=== PATIENT | female | born 1955 | race Caucasian/White ===

== ENCOUNTER 2022-02-05 08:37 | Outpatient (REF) | payer MEDICARE, SELFPAY ==
[2022-02-05 08:50] LABS: MANUAL DIFF FLAG NO
[2022-02-05 09:23] LABS: Basophils Absolute Auto 0.1 X10*3/uL (0.0-0.2); Basophils Percent Auto 1.2 % (0-2); Eosinophils Absolute Auto 0.2 X10*3/uL (0.0-0.4); Eosinophils Percent Auto 3.5 % (0-4); Hematocrit 43.6 % (37.0-47.0); Hemoglobin 14.1 g/dl (12.0-16.0); Imm Gran Abs Auto 0.02 X10*3/uL (0.00-0.03); Imm Gran Pct Auto 0.4 % (0.0-0.4); Lymphocytes Absolute Auto 2.1 X10*3/uL (1.2-4.9); Lymphocytes Percent Auto 41.9 % (20-40); Mean Corpuscular HGB Conc 32.3 g/dl (31.0-35.0); Mean Corpuscular Hemoglobin 29.1 pg (27.0-33.0); Mean Corpuscular Volume 89.9 fL (80.0-98.0); Mean Platelet Volume 11.4 fL (9.4-12.3); Monocytes Absolute Auto 0.4 X10*3/uL (0.1-1.2); Monocytes Percent Auto 8.3 % (2-11); Neutrophils Absolute Auto 2.3 x10*3/uL (2.0-8.3); Neutrophils Percent Auto 44.7 % (45-73); Platelet Count 222 X10*3/uL (160-400); Red Blood Count 4.85 X10*6/uL (4.20-5.50); Red Cell Distribution Width 13.3 % (11.0-16.0); White Blood Count 5.1 X10*3/uL (4.8-10.8)
[2022-02-05 09:57] LABS: Alanine Aminotransferase 51 U/L (0-31); Alkaline Phosphatase 128 U/L (39-117); Anion Gap 12 (12-20); Aspartate Amino Transferase 36 U/L (5-31); Bilirubin Total 0.5 mg/dL (0.0-1.0); Blood Urea Nitrogen 22 mg/dL (9-16); Calcium 9.7 mg/dL (8.4-10.2); Carbon Dioxide 27 mmol/L (22-29); Chloride 108 mmol/L (96-108); Cholesterol 317 mg/dL; Estimated Glomerular Filt Rate > 60; Glucose Fasting 92 mg/dL (60-99); HDL Cholesterol 86 mg/dL; LDL Cholesterol Calculated 212 mg/dl; Potassium 4.7 mmol/L (3.3-5.1); Sodium 142 mmol/L (135-145); Total Protein 6.9 g/dL (6.5-8.0); Triglycerides 99 mg/dL
[2022-02-05 10:16] LABS: TSH reflex Free T4 25.47 uIU/mL (0.32-4.0)
[2022-02-05 11:15] LABS: Free T4 (Free Thyroxine) 0.73 ng/dL (0.71-1.85)
[2022-02-12 12:32] LABS: Vitamin D 25-OH, D2 <4 ng/mL; Vitamin D 25-OH, D3 22 ng/mL; Vitamin D 25-OH, Total 22 ng/mL (30-100)
== END 2022-02-05 08:38 | disposition home or self-care (01) ==
LOC: HO.LAB 08:37
PROVIDERS: PCP Internal Medicine; Visit Provider Nurse Practitioner Family
DX: E03.9 Hypothyroidism, unspecified (principal); E66.9 Obesity, unspecified; E78.00 Pure hypercholesterolemia, unspecified; I10 Essential (primary) hypertension
CPT/HCPCS: 36415; 80053; 80061; 82306; 84439; 84443; 85025

== ENCOUNTER → 2022-03-06 10:02 | Outpatient (BNVA) | payer MEDICARE, SELFPAY | PROVIDERS: PCP Internal Medicine; Referring Provider Surgery; Visit Provider Physician Assistant | DX: Z13.89 Encounter for screening for other disorder (principal) ==

== ENCOUNTER → 2022-03-17 10:53 | Outpatient (BNVA) | payer MEDICARE, SELFPAY | PROVIDERS: PCP Internal Medicine; Visit Provider Physician Assistant Surgical | DX: E66.9 Obesity, unspecified (principal); Z68.41 Body mass index [BMI] 40.0-44.9, adult | CPT/HCPCS: Q3014 ==

== ENCOUNTER 2022-03-26 08:18 | Outpatient (REF) | payer MEDICARE, SELFPAY ==
--- NOTE | ~2022-03-26 | XR_ITS ---
EXAMINATION: XR CHEST CLINICAL INFORMATION: Obesity COMPARISON: None TECHNIQUE: 2 views of the chest were obtained. FINDINGS: No focal consolidation. No pneumothorax. Trachea is midline. Cardiomediastinal silhouette is not enlarged. Aorta demonstrates tortuosity with atherosclerotic calcifications. No large pleural effusion. Degenerative changes of the thoracolumbar spine. Soft tissues are unremarkable. XR/XR chest 2V IMPRESSION: No acute cardiopulmonary process.
--- NOTE | 2022-03-26 08:28 | ECG_ITS ---
Test Reason : OBESITY Blood Pressure : / mmHG Vent. Rate : 060 BPM Atrial Rate : 060 BPM P-R Int : 162 ms QRS Dur : 082 ms QT Int : 418 ms P-R-T Axes : 014 008 052 degrees QTc Int : 418 ms Normal sinus rhythm Normal ECG No previous ECGs available Referred By: Rubio Izquierdo Electronically Signed By:DEWAYNE GUY MD
[2022-03-26 09:51] LABS: Estimated Average Glucose 105 mg/dL; Hemoglobin A1c % 5.3 %
[2022-03-26 10:32] LABS: Alanine Aminotransferase 36 U/L (0-31); Albumin Level 4.1 g/dL (3.5-5.0); Alkaline Phosphatase 115 U/L (39-117); Aspartate Amino Transferase 26 U/L (5-31); Bilirubin Direct 0.2 mg/dL (0.0-0.5); Bilirubin Total 0.5 mg/dL (0.0-1.0); Iron 89 mcg/dL (30-160); Percent Iron Saturation 27 % (15-50); Total Iron Binding Capacity 329 mcg/dL (228-428); Total Protein 6.9 g/dL (6.5-8.0); Unsaturated Iron Binding 240 ug/dL
[2022-03-26 10:46] LABS: Folate 17.3 ng/mL (> or = 4.0); Vitamin B12 509 pg/mL (200-900)
[2022-03-26 10:52] LABS: Ferritin 312 ng/mL (10-250); Insulin 12 uU/mL (2-29); Thyroid Stimulating Hormone 9.44 uIU/mL (0.32-4.0)
[2022-03-29 15:43] LABS: H Pylori Breath Test Negative (Negative)
[2022-03-31 06:31] LABS: Zinc 93 mcg/dL (60-130)
[2022-04-01 16:55] LABS: Vitamin B1 14 nmol/L (8-30)
[2022-04-01 18:02] LABS: Vitamin A 33 mcg/dL (38-98)
== END 2022-03-26 08:19 | disposition home or self-care (01) ==
LOC: HO.XRAY 08:18
PROVIDERS: Absent Provider Physician Assistant Surgical; PCP Internal Medicine; Visit Provider Internal Medicine
DX: Z01.419 Encounter for gynecological examination (general) (routine) without abnormal findings (principal); E66.9 Obesity, unspecified; E03.9 Hypothyroidism, unspecified; R74.01 Elevation of levels of liver transaminase levels
CPT/HCPCS: 36415; 71046; 80076; 82607; 82728; 82746; 83013; 83036; 83525; 83540; 84425; 84443; 84590; 84630; 93005; 99211

== ENCOUNTER → 2022-04-16 09:41 | Outpatient (BNVA) | payer MEDICARE, SELFPAY | PROVIDERS: PCP Internal Medicine; Visit Provider Dietitian, Registered | DX: E66.9 Obesity, unspecified (principal); Z68.41 Body mass index [BMI] 40.0-44.9, adult | CPT/HCPCS: 97802 ==

== ENCOUNTER 2023-02-11 08:29 | Outpatient (REF) | payer MEDICARE, SELFPAY ==
[2023-02-11 08:59] LABS: MANUAL DIFF FLAG NO
[2023-02-11 09:06] LABS: Basophils Absolute Auto 0.1 X10*3/uL (0.0-0.2); Basophils Percent Auto 1.2 % (0-2); Eosinophils Absolute Auto 0.2 X10*3/uL (0.0-0.4); Eosinophils Percent Auto 3.7 % (0-4); Hematocrit 43.8 % (37.0-47.0); Hemoglobin 14.3 g/dl (12.0-16.0); Imm Gran Abs Auto 0.01 X10*3/uL (0.00-0.03); Imm Gran Pct Auto 0.2 % (0.0-0.4); Lymphocytes Absolute Auto 2.1 X10*3/uL (1.2-4.9); Lymphocytes Percent Auto 41.4 % (20-40); Mean Corpuscular HGB Conc 32.6 g/dl (31.0-35.0); Mean Corpuscular Hemoglobin 28.5 pg (27.0-33.0); Mean Corpuscular Volume 87.4 fL (80.0-98.0); Monocytes Absolute Auto 0.4 X10*3/uL (0.1-1.2); Monocytes Percent Auto 8.1 % (2-11); Neutrophils Absolute Auto 2.3 x10*3/uL (2.0-8.3); Neutrophils Percent Auto 45.4 % (45-73); Platelet Count 220 X10*3/uL (160-400); Red Blood Count 5.01 X10*6/uL (4.20-5.50); Red Cell Distribution Width 13.2 % (11.0-16.0); White Blood Count 5.1 X10*3/uL (4.8-10.8)
[2023-02-11 09:52] LABS: Alanine Aminotransferase 25 U/L (0-31); Alkaline Phosphatase 113 U/L (39-117); Anion Gap 10 (12-20); Aspartate Amino Transferase 22 U/L (5-31); Bilirubin Total 0.6 mg/dL (0.0-1.0); Blood Urea Nitrogen 18 mg/dL (9-16); Calcium 9.5 mg/dL (8.4-10.2); Carbon Dioxide 30 mmol/L (22-29); Chloride 107 mmol/L (96-108); Cholesterol 319 mg/dL; Estimated Glomerular Filt Rate > 60; Glucose Random 91 mg/dL (60-115); HDL Cholesterol 75 mg/dL; LDL Cholesterol Calculated 223 mg/dl; Potassium 4.6 mmol/L (3.3-5.1); Sodium 142 mmol/L (135-145); Total Protein 6.7 g/dL (6.5-8.0); Triglycerides 108 mg/dL
[2023-02-11 10:09] LABS: TSH reflex Free T4 9.11 uIU/mL (0.32-4.0); Vitamin D 25-OH Total 23.6 ng/mL (>30)
[2023-02-11 11:12] LABS: Free T4 (Free Thyroxine) 0.88 ng/dL (0.71-1.85)
== END 2023-02-11 08:30 | disposition home or self-care (01) ==
LOC: HO.LAB 08:29
PROVIDERS: PCP Internal Medicine; Visit Provider Nurse Practitioner Family
DX: Z13.220 Encounter for screening for lipoid disorders (principal); Z13.21 Encounter for screening for nutritional disorder; Z13.0 Encounter for screening for diseases of the blood and blood-forming organs and certain disorders involving the immune mechanism; E03.9 Hypothyroidism, unspecified; E55.9 Vitamin D deficiency, unspecified
CPT/HCPCS: 36415; 80053; 80061; 82306; 84439; 84443; 85025

== ENCOUNTER → 2023-05-26 13:58 | Outpatient (BNVA) | payer MEDICARE, SELFPAY | PROVIDERS: PCP Internal Medicine; Visit Provider Physician Assistant ==

== ENCOUNTER 2023-08-03 10:30 | Outpatient (AMB) | payer MEDICARE, SELFPAY ==
--- NOTE | 2023-08-03 10:40 | A.OFFVIS_ITS ---
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 Patient reports ongoing pain for many years, with no previous treatment. She states she went to get a massage and she was told that her thighs were very tight and it could be causing her to tip over when she is on her knees. 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 The patient reports ongoing pain for many years. She claims she went to get a massage and she was told her thighs were very tight and this could be causing her to tip over when she is on her knees. She denies prior treatment. She states it does not hurt when she kneels but will fall over. She states she is unable to do the yard works she would like to do due to mobility not pain. She confirms a right knee meniscus repair in the past. She confirms having arthritis in the bilateral knees. She believes she had cortisone injections in the past. She confirms being seen by a ingredient specialist for lumps on the bottom of her feet. She states she has surgery in the past to remove them but was told they would return. She denies a history of diabetes mellitus. 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 No ecchymosis, erythema, or joint effusion. No tenderness to palpation to the medial or lateral joint lines. Full knee extension and flexion. Crepitus felt with ROM. NVI. Office Procedures Joint Injection/Drain Joint Injection/Drain Primary Site: right knee Secondary Site: left knee Injected: 80 mg of, DepoMedrol, with 8 mL of (2% plain lido ) and in the joint Approach Used: anterolateral Procedure: The patient tolerated the procedure well, but had some pain with the injection and there was some relief with the local anesthesia Coding 22458 - Large joint Procedure code (CPT) selection complete Results Reviewed Results Reviewed: 08/03/23 11:00 Lidocaine HCl 2 % MPF [Xylocaine 2 % MPF] 5 ml .ROUTE .STK-MED ONE methylPREDNISolone acetate [DEPO-MedroL] 80 mg .ROUTE .STK-MED ONE Assessment & Plan Assessment & Plan (1) Osteoarthritis of right knee: Code(s): M17.11 - Unilateral primary osteoarthritis, right knee Qualifiers: Osteoarthritis type: unspecified Qualified Code(s): M17.11 - Unilateral primary osteoarthritis, right knee (2) Osteoarthritis of left knee: Code(s): M17.12 - Unilateral primary osteoarthritis, left knee Qualifiers: Osteoarthritis type: unspecified Qualified Code(s): M17.12 - Unilateral primary osteoarthritis, left knee Plan Ms. Tellez is a 68-year-old female who presents in the office today, as a new patient, for an evaluation of bilateral knee complications. The patient reports ongoing pain for many years. She claims she went to get a massage and she was told her thighs were very tight and this could be causing her to tip over when she is on her knees. She denies prior treatment. She states it does not hurt when she kneels but will fall over. She states she is unable to do the yard works she would like to do due to mobility not pain. She confirms a right knee meniscus repair in the past. She confirms having arthritis in the bilateral knees. She believes she had cortisone injections in the past. She confirms being seen by a ingredient specialist for lumps on the bottom of her feet. She states she has surgery in the past to remove them but was told they would return. She denies a history of diabetes mellitus. We discussed conservative treatments (cortisone, gel, or physical therapy) verse surgical treatment (total knee arthroplasty). The patient will be referred for physical therapy to work on quad, core, and glute training. I discussed the role of cortisone and gel injection, she would like to move forward with the cortisone at this time. Follow up will be PRN, or sooner if needed. X-rays of the bilateral knees which were obtained while in the office today and were reviewed by me, Keena Roblero PA-C, revealed bilateral knee osteoarthritis. Orders: Orders XR knee LT 2V Today M25.569 - Pain in unspecified knee XR knee standing BI Today M25.569 - Pain in unspecified knee XR knee RT 2V Today M25.569 - Pain in unspecified knee Patient Instructions: Scribed for Keena Roblero PA-C by Melissa Green medical assistant supervisor, on 08/03/2023 at 10:38 am, EST. Coding Level of Care Code New Pt Level 4 (30125) Diagnoses Osteoarthritis of right knee, unspecified osteoarthritis type M17.11 Osteoarthritis type: unspecified Osteoarthritis of left knee, unspecified osteoarthritis type M17.12 Osteoarthritis type: unspecified CPT Codes Coding - 84238 Large joint: 52307 - Large joint ([id number])
[2023-08-03 10:41] VITALS: BMI 40.3
== END 2023-08-03 11:18 | disposition home or self-care (01) ==
PROVIDERS: PCP Internal Medicine; Visit Provider Physician Assistant
DX: M17.0 Bilateral primary osteoarthritis of knee (principal)
CPT/HCPCS: 20610; 99204

== ENCOUNTER 2023-08-03 11:08 | Outpatient (REF) | payer MEDICARE, SELFPAY ==
--- NOTE | ~2023-08-03 | XR_ITS ---
EXAMINATION: XR KNEE AP STANDING, SUNRISE AND LATERAL VIEWS OF BILATERAL KNEES CLINICAL INFORMATION: Pain. COMPARISON: 09/20/2019 TECHNIQUE: AP bilateral standing view as well as lateral and sunrise views of the bilateral knees was obtained. FINDINGS: RIGHT KNEE: Qyxsfqzd-[id number] degenerative changes in the medial and patellofemoral compartments with hypertrophic change and joint space narrowing. The bones are diffusely demineralized. No significant joint effusion. Small quadriceps enthesophyte. Possible fragmentation and irregularity of the patella and previously identified exuberant calcification felt to represent a loose body difficult to characterize. LEFT KNEE: Moderate medial joint space narrowing with marginal osteophytes. Advanced degenerative changes in the patellofemoral joint with hypertrophic change. Moderate quadriceps enthesophyte. Trace joint effusion. Faint calcifications in the soft tissues anterior to the shaft of the distal femur of indeterminate etiology XR/XR knee RT 2V IMPRESSION: Advanced degenerative changes of bilateral knees, right greater than left.
--- NOTE | ~2023-08-03 | XR_ITS ---
EXAMINATION: XR KNEE AP STANDING, SUNRISE AND LATERAL VIEWS OF BILATERAL KNEES CLINICAL INFORMATION: Pain. COMPARISON: 09/20/2019 TECHNIQUE: AP bilateral standing view as well as lateral and sunrise views of the bilateral knees was obtained. FINDINGS: RIGHT KNEE: Uvojbpay-sj-iayqgx degenerative changes in the medial and patellofemoral compartments with hypertrophic change and joint space narrowing. The bones are diffusely demineralized. No significant joint effusion. Small quadriceps enthesophyte. Possible fragmentation and irregularity of the patella and previously identified exuberant calcification felt to represent a loose body difficult to characterize. LEFT KNEE: Moderate medial joint space narrowing with marginal osteophytes. Advanced degenerative changes in the patellofemoral joint with hypertrophic change. Moderate quadriceps enthesophyte. Trace joint effusion. Faint calcifications in the soft tissues anterior to the shaft of the distal femur of indeterminate etiology XR/XR knee standing BI IMPRESSION: Advanced degenerative changes of bilateral knees, right greater than left.
--- NOTE | ~2023-08-03 | XR_ITS ---
EXAMINATION: XR KNEE AP STANDING, SUNRISE AND LATERAL VIEWS OF BILATERAL KNEES CLINICAL INFORMATION: Pain. COMPARISON: 09/20/2019 TECHNIQUE: AP bilateral standing view as well as lateral and sunrise views of the bilateral knees was obtained. FINDINGS: RIGHT KNEE: Wqwfjgeb-rr-lfnlvh degenerative changes in the medial and patellofemoral compartments with hypertrophic change and joint space narrowing. The bones are diffusely demineralized. No significant joint effusion. Small quadriceps enthesophyte. Possible fragmentation and irregularity of the patella and previously identified exuberant calcification felt to represent a loose body difficult to characterize. LEFT KNEE: Moderate medial joint space narrowing with marginal osteophytes. Advanced degenerative changes in the patellofemoral joint with hypertrophic change. Moderate quadriceps enthesophyte. Trace joint effusion. Faint calcifications in the soft tissues anterior to the shaft of the distal femur of indeterminate etiology XR/XR knee LT 2V IMPRESSION: Advanced degenerative changes of bilateral knees, right greater than left.
== END 2023-08-03 11:09 | disposition home or self-care (01) ==
LOC: HO.HOSX 11:08
PROVIDERS: Visit Provider Physician Assistant
DX: M17.0 Bilateral primary osteoarthritis of knee (principal)
CPT/HCPCS: 20610; 73560; 73565; 99202; J1040

== ENCOUNTER 2023-08-12 10:13 | Outpatient (AMB) | payer MEDICARE, SELFPAY ==
--- NOTE | 2023-08-12 10:13 | MHC.PC.OV ---
Vital Signs 08/12/23 10:14 Height 5 ft 4 in Weight 241 lb BMI 41.4 BP 120/78 Blood Pressure Location Lt brachial Position Sitting Pulse 57 Pulse Source Pulse Oximeter Pulse Oximetry (%) 97 Oxygen Delivery Method Room Air Intake Visit Reasons: hypothyroid Intake Note: Patient here for a follow up hypothyroid Health Educator Required: No Accompanied by: Self / Same As Patient Allergies penicillin V Allergy (Unknown, Verified 08/12/23 10:18) itchy Penicillins [PENICILLINS] Allergy (Unknown, Verified 08/12/23 10:18) RASH atorvastatin Adverse Reaction (Unknown, Verified 08/12/23 10:18) myalgia simvastatin Adverse Reaction (Unknown, Verified 08/12/23 10:18) myalgia Tobacco use date assessed: 08/12/23 Fall risk assessment: No Falls in past year Last assessed Fall Risk: 08/12/23 Dental Screening Dental Screen Date: 08/12/23 Did you have a dental visit in the last 12 months?: No Did you have a dental problem in the last 6 months where you did not have access to dental care?: No Was dental information given to patient?: Patient has dentist HPI HPI Comments History of Present Illness Details 68 year old female past medical history significant for hypothyroid, hypercholesterolemia and obesity. Patient of Dr Barraza, patient presents today for follow-up. Previous TSH elevated, patient reminded to get previously ordered blood work completed. Patient reports saw othro last week, had bilateral knee injections. Patient reports 100% relief of pain. Patient reports has upcoming appointment with physical therapy. Patient requesting to discuss weight loss medications, patient reports that a new medication is going to be approved for weight loss after thanksgiving tirzeptide. Discussed Ozempic and Monjaro for which are approved for weightloss at this time. Patient states she will make a follow up to further discuss is she would like to trial a weight loss medication. Offered referral to weight management, patient reports has tried this in this past with no success. 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 Marcus Ba, Candi Lezama, Pipe Tomas and colleagues, with an educational shekhar from [employer]. Review of Systems Const Denies chills, Denies fatigue, Denies fever(s) and Denies poor appetite Eyes Denies no additional complaints ENT Reports Normal hearing present Card Denies chest pain, Denies syncope, Denies rapid heart rate and Denies dyspnea Resp Denies cough and Denies dyspnea GI Denies change in stool character, Denies constipation, Denies diarrhea, Denies nausea and Denies vomiting Denies urinary frequency, Denies dysuria and Denies urinary urgency Neuro Reports Normal hearing present, Denies confusion and Denies syncope Psych Denies confusion Endo Denies fatigue Physical exam (Primary Care) Vital Signs: Last Vital Signs Pulse 57 08/12/23 10:14 BP 120/78 08/12/23 10:14 Pulse Ox 97 08/12/23 10:14 Oxygen Delivery Method Room Air 08/12/23 10:14 BMI result Body Mass Index 41.4 Tobacco/Smoking Status: Tobacco use Status Tobacco use date assessed 08/12/23 08/12/23 10:21 Patient Tobacco Use Status Never used Tobacco 08/12/23 10:21 e-Cigarette/Vaping Use Never Used 08/12/23 10:21 Thrive Assessment: Date of Thrive Assessment Date Thrive assessed 02/09/23 08/12/23 10:21 Const General: No confusion Orientation/consciousness: No confusion HENMT Head: Yes normocephalic and Yes atraumatic Eyes Conjunctivae: conjunctivae normal Chest Chest palpation & inspection: normal inspection of the chest Resp Effort & Inspection: normal respiratory effort Auscultation: clear to auscultation bilaterally, no crackles, no rhonchi and no wheezes Cardio Rate: regular rate Rhythm: regular rhythm Heart sounds: S1 normal heart sound present and S2 normal heart sound present GI Inspection: Yes normal to inspection Neuro General: No confusion Cranial nerves: Yes Normal hearing present Extrem General: No edema Office Procedures Flu Questionnaire Does the patient have a severe egg allergy?: No Immunizations flu vacc [id number] 6mos up(PF) 60 mcg(15 mcgx4)/0.5 mL IM syringe Performing Provider: JUDY Massey [facility] Documented (not given) by: VALERIANO Bryan on 08/12/23 10:22 Reason Not Given: Patient Refused Assessment and Plan Assessment & Plan (1) Hypothyroid: Code(s): E03.9 - Hypothyroidism, unspecified Plan: Patient reminded to get previously ordered labs completed. Continue on levothyroxine. (2) BMI 40.0-44.9, adult: Code(s): Z68.41 - Body mass index [BMI] 40.0-44.9, adult Plan: Diet and exercise to reduce BMI. Patient declined referral to weight management program at this time. States she will schedule follow-up to further discuss possible trying weight loss medication. (3) Pure hypercholesterolemia: Code(s): E78.00 - Pure hypercholesterolemia, unspecified Plan: Patient reminded to get fasting lipid completed Plan Follow up in 6 months Orders: Orders Influenza [id number] Immunization Today Z23 - Encounter for immunization Medications: Discontinued semaglutide (Ozempic) for 4 weeks Discontinued Reason: Insurance Denied 0.25 mg (0.368 mL) subcut QWEEK 3 mL 0RF Z68.41 - Body mass index [BMI] 40.0-44.9, adult Coding Level of Care Code Est Pt Level 3 (06234) Diagnoses Hypothyroid E03.9 BMI 40.0-44.9, adult Z68.41 Pure hypercholesterolemia E78.00
[2023-08-12 10:14] VITALS: BP 120/78; PULSE 57; O2SAT 97; BMI 41.4
== END 2023-08-12 10:48 | disposition home or self-care (01) ==
PROVIDERS: Visit Provider Nurse Practitioner Family
DX: E03.9 Hypothyroidism, unspecified (principal); E78.00 Pure hypercholesterolemia, unspecified; E66.01 Morbid (severe) obesity due to excess calories; Z68.41 Body mass index [BMI] 40.0-44.9, adult
CPT/HCPCS: 99213

== ENCOUNTER 2023-10-25 10:58 | Day surgery (SDC) | payer MEDICARE, SELFPAY ==
--- NOTE | 2023-10-22 09:31 | HO.ANESPROP2 ---
Documented by User: Daniella Weaver NP 10/22/23 09:32 HPI - Anesthesia Eval Consult details Narrative: 68yo F for Colonoscopy Last pcp visit 08/2023, pt discussed GLP 1 weight loss option. ??? started, none on external med list PMFSH Active Problems Active Problems: All Active Problems (Updated 08/03/23 @ 11:02 by Melissa Green) Osteoarthritis of left knee (Acute) Osteoarthritis of right knee (Acute) Encounter for screening colonoscopy (Acute) Elevated ferritin level (Acute) Pure hypercholesterolemia (Acute) Hypovitaminosis D (Acute) Transaminitis (Acute) BMI 40.0-44.9, adult (Acute) Hypothyroid (Acute) Obesity (Acute) Past Medical History Medical History (Updated 10/22/23 @ 09:32 by Daniella Weaver NP) Pure hypercholesterolemia Hypothyroid Transaminitis Surgical History Surgical History No pertinent past surgical history Social History Social History Housing: House Patient Tobacco Use Status: Never used Tobacco e-Cigarette/Vaping Use: Never Used Second Hand Smoke Exposure: No Use of substances other than those prescribed or required for medical reasons: No Are you DNR?: No Advance Directives: No Advance Directives Information Provided: Yes Advance Directives on File: No service: No 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) Current occupational exposures/hazards: No Cognitive needs: No Hearing needs: No Vision needs: No Meds Allergies Allergy/AdvReac Type Severity Reaction Status Date / Time penicillin V Allergy Unknown itchy Verified 08/12/23 10:18 Penicillins [PENICILLINS] Allergy Unknown RASH Verified 08/12/23 10:18 atorvastatin AdvReac Unknown myalgia Verified 08/12/23 10:18 simvastatin AdvReac Unknown myalgia Verified 08/12/23 10:18 Assessment and Plan Assessment Anesthesia Assessment: Chart Reviewed Documented by User: Elvia Neumann MD 10/25/23 11:55 [facility] Past Medical History Medical History (Updated 10/22/23 @ 09:32 by Daniella Weaver NP) Pure hypercholesterolemia Hypothyroid Transaminitis Family History Family history of problems with anesthesia: No Surgical History Surgical History No pertinent past surgical history History of Problems with Anesthesia: No Social History Social History Housing: House Patient Tobacco Use Status: Never used Tobacco e-Cigarette/Vaping Use: Never Used Second Hand Smoke Exposure: No Use of substances other than those prescribed or required for medical reasons: No Are you DNR?: No Advance Directives: No Advance Directives Information Provided: Yes Advance Directives on File: No service: No 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) Current occupational exposures/hazards: No Cognitive needs: No Hearing needs: No Vision needs: No Meds Allergies Allergy/AdvReac Type Severity Reaction Status Date / Time penicillin V Allergy Unknown itchy Verified 08/12/23 10:18 Penicillins [PENICILLINS] Allergy Unknown RASH Verified 08/12/23 10:18 atorvastatin AdvReac Unknown myalgia Verified 08/12/23 10:18 simvastatin AdvReac Unknown myalgia Verified 08/12/23 10:18 Exam Airway Mallampati Class: II (missing a couple) TM Dist: >3cm Neck ROM: Full Heart: rrr Lungs: cta Assessment and Plan Assessment Anesthesia Assessment: Anesthesia Plan Discussed Final Anesthetic Review Family History of Problems with Anesthesia: No History of Problems with Anesthesia: No NPO: Yes ASA Class: II Final Preanesthetic Review: No Changes in Pt Med Stat, Meds/Allgs Chart Reviewed and Consent Obtained/Reviewed Patient Risk: Intermediate Procedure Risk: Intermediate Anesthetic Plan Anesthetic Plan: MAC: Disposition: Standard PACU
[2023-10-25 11:55] VITALS: BMI 40.2
--- NOTE | 2023-10-25 11:56 | MHC.SHP ---
Pre-Procedural Eval Section A Date of Service: 10/25/23 The patient is an INPATIENT: No The History & Physical has been completed within 30 days and I have reviewed it.: No Section B Chief Complaint: Colon cancer screening Relevant Family History (Specify if Yes): Yes Relevant Social History: None Present Medications: see Short Stay Collaborative assessment Medical History: Significant History (Hyperlipidemia, hypothyroidism, transaminitis, morbid obesity) History of Previous Operations: No relevant previous surgery Allergies: Allergies Allergy/AdvReac Type Severity Reaction Status Date / Time penicillin V Allergy Unknown itchy Verified 08/12/23 10:18 Penicillins [PENICILLINS] Allergy Unknown RASH Verified 08/12/23 10:18 atorvastatin AdvReac Unknown myalgia Verified 08/12/23 10:18 simvastatin AdvReac Unknown myalgia Verified 08/12/23 10:18 Review of Systems Sugical H&P ROS: Negative: Constitution, Cardiovascular and Respiratory and Yes, Specify: Gastrointestinal (chronic constipation) Exam Surgical H&P Exam: Normal: Heart, Normal: Lungs, Normal: Extremities and Normal: Abdomen Plan Diagnosis/Plan: Unchanged I have reviewed the history and physical and performed a pertinent physical examination on my patient. No changes have occurred unless specified. Time Spent With Patient Time: Total time managing care of this patient today ____ minutes.
[2023-10-25] MEDS: Sodium Phosphate,Mono-Dibasic 133 ML ENEMA PR (12:46)
--- NOTE | 2023-10-25 13:12 | P.OP_ITS ---
Operative Note Operative Note Date of Service: 10/25/23 Narrative: COLONOSCOPY TILL CECUM WITH SNARE POLYPECTOMY AND SUBMUCOSAL INJECTION Pre-op diagnosis: Surveillance for colon polyps, family history of colon cancer (Mom had colon resection with a colostomy at age 65 yrs for colon cancer) Post-op diagnosis:? Colon polyps, diverticulosis, hemorrhoids Endoscopist:? Lexy Medel MD Anesthesia:?MAC Consent: Indications for the procedure and potential complications of bleeding, perforation, reaction to medications and missed diagnosis were discussed with the patient and informed consent was obtained. Instrument: Olympus PCF H 190 L variable stiffness pediatric colonoscope Monitoring: Vital signs and clinical assessment, intermittent blood pressure monitoring, continuous EKG monitoring, Pulse oximetry and Carbon Dioxide monitoring were done throughout the procedure. Please see anesthesia flowsheet. Colon withdrawl time was 27 minutes. Procedure: The patient was placed in the left lateral decubitis position and pre-procedure medications were administered. After a digital rectal examination of the ano-rectum, the video colonoscope was inserted into the rectum and advanced through the colon to the cecum. The colonoscope was slowly withdrawn in a retrograde panoramic fashion and the colon mucosa was carefully examined including a retroflexed view of the rectum. Findings and interventions are described below. Procedure Difficulty: Without difficulty Findings: Terminal Ileum: Not evaluated Cecum: Normal Ascending Colon: A 12-15 mm flat polyp in the proximal AC. Polyp was raised with 3 cc of [place] and removed with a hot snare Transverse Colon: A 12-15 mm sessile polyp - removed with a hot snare Descending Colon: Moderate diverticulosis Sigmoid Colon: A 10-12 mm sessile polyp - removed with a hot snare. Moderate diverticulosis Rectum: Normal Ano-rectum: Moderate internal hemorrhoids Colon preparation: Fair despite copious irrigation [place] Bowel Preparation Scale Right colon; 2 Transverse colon: 1 Left colon; 1 (0 = Unprepared colon segment with mucosa not seen due to solid stool that cannot be cleared. 1 = Portion of mucosa of the colon segment seen, but other areas of the colon segment not well seen due to staining, residual stool and/or opaque liquid. 2 = Minor amount of residual staining, small fragments of stool and/or opaque liquid, but mucosa of colon segment seen well. 3 = Entire mucosa of colon segment seen well with no residual staining, small fragments of stool or opaque liquid) Impression and Post Procedure Diagnosis: Colonoscopy Findings: Three medium sized polyps removed Moderate diverticulosis seen in the left colon Moderate hemorrhoids on retroflexed exam. Colon preparation: Fair despite copious irrigation Plan: Await pathology results Patient has an appointment on 11/09/23 in the GI Clinic with ABDULAZIZ Pedraza. Repeat Colonoscopy interval based on path results - in 2-3 years if polyps are adenomatous and due to fair prep. Above findings were reviewed with the patient and colon polyps and diverticulosis handouts were given in the discharge area
[2023-10-25 14:05] VITALS: BP 86/37; PULSE 70; RESP 16; TEMP 36.4; O2SAT 96
[2023-10-25 14:20] VITALS: BP 111/51; PULSE 67; RESP 16; O2SAT 98
[2023-10-25 14:35] VITALS: BP 118/46; PULSE 62; RESP 18; TEMP 36.2; O2SAT 98
== END 2023-10-25 15:20 | disposition home or self-care (01) ==
PROVIDERS: PCP Internal Medicine; Visit Provider Internal Medicine Gastroenterology
PROC: 0DJD8ZZ Inspection of Lower Intestinal Tract, Via Natural or Artificial Opening Endoscopic (ICD-10-PCS; CPT 45378; principal; 2023-10-25 12:50)
DX: Z12.11 Encounter for screening for malignant neoplasm of colon (principal); D12.2 Benign neoplasm of ascending colon; D12.3 Benign neoplasm of transverse colon; D12.5 Benign neoplasm of sigmoid colon; K57.30 Diverticulosis of large intestine without perforation or abscess without bleeding; K64.8 Other hemorrhoids; Z80.0 Family history of malignant neoplasm of digestive organs; E78.00 Pure hypercholesterolemia, unspecified
CPT/HCPCS: 45385; 45381; 88305; J2704

== ENCOUNTER → 2023-10-25 10:58 | Outpatient (BNV) | payer MEDICARE, SELFPAY | PROVIDERS: PCP Internal Medicine; Visit Provider Internal Medicine Gastroenterology | DX: Z12.11 Encounter for screening for malignant neoplasm of colon (principal); Z86.010 Personal history of colon polyps; Z80.0 Family history of malignant neoplasm of digestive organs; D12.3 Benign neoplasm of transverse colon | CPT/HCPCS: 45381; 45385 ==

== ENCOUNTER 2023-11-16 13:24 | Outpatient (AMB) | payer MEDICARE, SELFPAY ==
--- NOTE | 2023-11-16 13:26 | MHC.OFFVIS ---
Intake Intake Visit Reasons: OV-Right knee injection-last injection 08/03/23 Intake Note: Lisbeth is a 68 year old female who presents today for a repeat injection for her right knee. Patient would like to repeat the injection. She states that her last injection gave her about 4 months of relief, yet she started to get a sharp pain on the medial aspect of the knee which is affecting her ability to do her daily activities. Allergies penicillin V Allergy (Unknown, Verified 11/16/23 13:48) itchy Penicillins [PENICILLINS] Allergy (Unknown, Verified 11/16/23 13:48) RASH atorvastatin Adverse Reaction (Unknown, Verified 11/16/23 13:48) myalgia simvastatin Adverse Reaction (Unknown, Verified 11/16/23 13:48) myalgia HPI OV-Right knee injection-last injection 08/03/23 HPI Details 68-year-old female who presents in the office today for a follow up of right knee pain. I last saw the patient in the office on 08/03/2023 when she was given a cortisone injection. The patient would like to repeat the injection today. 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 No ecchymosis, erythema, or joint effusion. No tenderness to palpation to the medial or lateral joint lines. Full knee extension and flexion. Crepitus felt with ROM. NVI. Office Procedures Joint Injection/Drain Joint Injection/Drain Primary Site: right knee Prep: site was prepped using aseptic technique, ethochloride spray was applied and injection warnings given Injected: 80 mg of, DepoMedrol, with 8 mL of (2% plain lido ) and in the joint Approach Used: anterolateral Procedure: The patient tolerated the procedure well, but had some pain with the injection and there was some relief with the local anesthesia Coding - Large joint Procedure code (CPT) selection complete Assessment & Plan Assessment & Plan (1) Osteoarthritis of right knee: Code(s): M17.11 - Unilateral primary osteoarthritis, right knee Qualifiers: Osteoarthritis type: unspecified Qualified Code(s): M17.11 - Unilateral primary osteoarthritis, right knee Plan Ms. Tellez is a 68-year-old female who presents in the office today for a follow up of right knee pain. I last saw the patient in the office on 08/03/2023 when she was given a cortisone injection. The patient would like to repeat the injection today. The patient was offered a cortisone injection in the right knee with 80 mg of DepoMedrol. The patient was explained the risk, benefits, and alternatives to receiving this injection. After receiving consent for the injection, the patient had the procedure done while in office today. The patient tolerated the procedure well with no complications. Follow up will be PRN, or sooner if needed. Patient Instructions: Scribed by Melissa Green medical services assistant, for Keena Roblero PA-C on 11/16/2023 at 1:25 pm, EST. Coding Level of Care Code Est Pt Level 3 (64358) Diagnoses Osteoarthritis of right knee, unspecified osteoarthritis type M17.11 Osteoarthritis type: unspecified CPT Codes Coding - Large joint: 37874 - Large joint ([id number])
== END 2023-11-16 13:48 | disposition home or self-care (01) ==
PROVIDERS: Visit Provider Physician Assistant
DX: M17.11 Unilateral primary osteoarthritis, right knee (principal)
CPT/HCPCS: 20610; 99213

== ENCOUNTER → 2023-11-16 13:24 | Outpatient (BNVA) | payer MEDICARE, SELFPAY | PROVIDERS: Visit Provider Physician Assistant | DX: M17.11 Unilateral primary osteoarthritis, right knee (principal) | CPT/HCPCS: 20610; 99212; J1040 ==

== ENCOUNTER 2024-01-27 17:14 | Emergency (ER) | payer MEDICARE, SELFPAY ==
--- NOTE | 2024-01-27 | ECG_ITS ---
Test Reason : CHEST PAIN Blood Pressure : / mmHG Vent. Rate : 073 BPM Atrial Rate : 073 BPM P-R Int : 152 ms QRS Dur : 074 ms QT Int : 388 ms P-R-T Axes : 005 -09 037 degrees QTc Int : 427 ms Normal sinus rhythm Cannot rule out Anterior infarct , age undetermined Abnormal ECG When compared with ECG of 26-MAR-2022 08:33, No significant change was found Referred By: Generic ED Physician Electronically Signed By:DEWAYNE GUY MD
--- NOTE | ~2024-01-27 | XR_ITS ---
EXAMINATION: XR CHEST CLINICAL INFORMATION: Cough for one month COMPARISON: CXR from 03/26/2022 TECHNIQUE: 2 views of the chest were obtained. FINDINGS: Lungs are well expanded. No evidence of pulmonary mass, interstitial disease, consolidation or pleural effusion. Linear opacities from minimal discoid atelectasis or scarring in the superior lingula and medial aspect of the right middle lobe. Cardiac silhouette is normal in size. The hilar contours are normal. No acute or suspicious osseous abnormalities. XR/XR chest 2V IMPRESSION: No radiographic evidence of pneumonia.
[2024-01-27 17:21] VITALS: BP 152/58; PULSE 74; RESP 18; TEMP 36.3; O2SAT 98; BMI 41.0
--- NOTE | 2024-01-27 17:22 | ED.GENADULT ---
HPI - General Adult General Chief complaint: Chest Pain Stated complaint: chest pain since last night Time Seen by Provider: 01/27/24 21:17 History of Present Illness HPI narrative: The patient is a 68-year-old woman who comes to the emergency room for 3 days of chest discomfort that is described as a tightness in the chest. The symptoms have been bothering her more at night but this afternoon she experienced some during the day as well. She has been walking recently to lose weight and sometimes feels short of breath when she exerts herself. The patient also notes that she has a great deal of stress in her marriage. She has been for approximately 40 years. There has been a lot of stresses in the marriage over the decades and she is finding the marriage harder and harder because she finds her 's attitude towards her very unpleasant. Her 25-year-old son lives with her at home. He has a support to the patient. No fever, sweats, chills. No abdominal pain, nausea, vomiting. Related Data Previous Rx's ?Medication ?Instructions ?Recorded cholecalciferol (vitamin D3) 50 50 mcg PO DAILY #90 tabs 02/18/22 mcg (2,000 unit) tablet vitamin A palmitate 3,000 mcg 10,000 unit PO DAILY #30 caps 04/02/22 (10,000 unit) capsule diclofenac potassium 50 mg tablet 50 mg PO BID PRN pain 30 days #60 01/20/23 tabs ezetimibe 10 mg tablet (Zetia) 10 mg PO DAILY #30 tabs 02/11/23 levothyroxine 100 mcg tablet 100 mcg PO DAILY 30 days #30 tabs 02/11/23 omeprazole 40 mg capsule,delayed 40 mg PO DAILY #30 caps 01/27/24 release Allergies Allergy/AdvReac Type Severity Reaction Status Date / Time penicillin V Allergy Unknown itchy Verified 01/27/24 17:22 Penicillins [PENICILLINS] Allergy Unknown RASH Verified 01/27/24 17:22 atorvastatin AdvReac Unknown myalgia Verified 01/27/24 17:22 simvastatin AdvReac Unknown myalgia Verified 01/27/24 17:22 [facility] Past Medical History Medical History (Updated 01/27/24 @ 21:35 by Mauricio Dorsey MD) Pure hypercholesterolemia Hypothyroid Transaminitis Surgical History (Updated 11/02/23 @ 14:27 by Ramandeep Castillo) H/O colonoscopy No pertinent past surgical history Social History Social History Housing: House Patient Tobacco Use Status: Never used Tobacco e-Cigarette/Vaping Use: Never Used Second Hand Smoke Exposure: No Advance Directives: No Advance Directives Information Provided: No Do you have a plan to hurt others: No Plan service: No 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 She does not appear in acute distress. HENMT Other: Face is symmetrical. Mucous membranes moist Eyes Other: Pupils are round equal, conjunctivae are clear Neck Other: No JVD Resp Effort & Inspection: normal respiratory effort Auscultation: clear to auscultation bilaterally Cardio Rate: regular rate Rhythm: regular rhythm Heart sounds: S1 normal heart sound present and S2 normal heart sound present GI Other: Abdomen is soft and nontender Skin Other: Skin is dry and unremarkable Neuro Other: Is awake, alert, pleasant, cooperative, cranial nerves are grossly intact, she moves her extremities grossly normally and seems grossly neurologically intact. Extrem Other: No peripheral edema, no calf swelling or tenderness, no asymmetry Course Course Course Narrative: This is a rapid medical exam: Additional HPI, ROS, PE not included below will be deferred to primary provider. Patient is a 68-year-old female presenting to the ED with complaint of right sided chest pain. States pain began last night, she thought it was gas, drank some yovani mayda and used a heating pad. This am pain had resolved, but returned again around 2 hours ago. Reports dyspnea on exertion. Cough x 1 month. Plan: EKG, labs, CXR Medications Administered Discontinued Medications Generic Name Dose Route Start Last Admin Trade Name Freq PRN Reason Stop Dose Admin Sucralfate 1 gm 01/27/24 21:33 04/25/24 21:57 Sucralfate Oral Suspension 1 Gm/10 Ml Oral.Susp PO 01/27/24 21:34 1 gm ONCE ONE Administration Medical Decision Making Medical Decision Making [facility] Narrative: The patient presents with 3 days of pressure-like chest discomfort which bother the patient mostly at night. She has also had some exertional dyspnea. Clinically the patient looks entirely well. She spoke almost immediately about the stress of her marriage as a possible cause of chest pain. She describes several years of marital difficulty and unwilling to grand her divorce. My suspicion for an acute coronary syndrome in this patient is quite low. Her EKG shows no acute findings. Troponins are flat. ProBNP is normal. Chest x-ray is normal. Her description of the symptoms does not seem highly suggestive of a pulmonary embolism. I suspect that this chest discomfort syndrome is either a manifestation of the stress of her marriage or possibly acid reflux. The patient will be started on a course of omeprazole and should follow up with her PCP. She should return if worse. Lab Data 01/27/24 17:32 01/27/24 17:31 Labs: Lab Results 01/27/24 01/27/24 01/27/24 Range/Units 17:31 17:32 19:42 WBC 5.8 (4.8-10.8) X10*3/uL RBC 4.88 (4.20-5.50) X10*6/uL Hgb 14.3 (12.0-16.0) g/dl Hct 43.0 (37.0-47.0) % MCV 88.1 (80.0-98.0) fL MCH 29.3 (27.0-33.0) pg MCHC 33.3 (31.0-35.0) g/dl RDW 13.7 (11.0-16.0) % Plt Count 228 (160-400) X10*3/uL MPV 11.0 (9.4-12.3) fL Immature Gran % (Auto) 0.2 (0.0-0.4) % Neut % (Auto) 44.9 L (45-73) % Lymph % (Auto) 44.7 H (20-40) % Fannin % (Auto) 6.4 (2-11) % Eos % (Auto) 2.9 (0-4) % Baso % (Auto) 0.9 (0-2) % Lymph # (Auto) 2.6 (1.2-4.9) X10*3/uL Fannin # (Auto) 0.4 (0.1-1.2) X10*3/uL Eos # (Auto) 0.2 (0.0-0.4) X10*3/uL Baso # (Auto) 0.1 (0.0-0.2) X10*3/uL Abs Immat Gran (auto) 0.01 (0.00-0.03) X10*3/uL Absolute Neuts (auto) 2.6 (2.0-8.3) x10*3/uL Absolute Nucleated RBC 0.000 (0.0-0.012) X10*3/uL Nucleated RBC % (auto) 0.0 (0.0-0.2) /100WBC PT 11.3 (11.1-13.3) SEC INR 0.9 (0.9-1.1) Sodium 143 (135-145) mmol/L Potassium 3.7 (3.3-5.1) mmol/L Chloride 108 (96-108) mmol/L Carbon Dioxide 29 (22-29) mmol/L Anion Gap 10 L (12-20) BUN 15 (9-16) mg/dL Creatinine 0.76 (0.5-1.4) mg/dL Estim Creat Clear Calc 86.4 Estimated GFR > 60 Random Glucose 128 H (60-115) mg/dL Calcium 9.4 (8.4-10.2) mg/dL Total Bilirubin 0.3 (0.0-1.0) mg/dL AST 30 (5-31) U/L ALT 34 H (0-31) U/L Alkaline Phosphatase 114 (39-117) U/L Troponin I High Sens < 2.7 < 2.7 (<3.5-17.0) ng/L B-Natriuretic Peptide 24 (<100) pg/mL Total Protein 7.3 (6.5-8.0) g/dL Albumin 4.0 (3.5-5.0) g/dL Influenza Type A (PCR) NEGATIVE (Negative) Influenza Type B (PCR) NEGATIVE (Negative) RSV RNA Qual (PCR) NEGATIVE (Negative) SARS-CoV-2 RNA (RT-PCR) NEGATIVE (Negative) Independent Interpretation I performed an independent interpretation of an: EKG Interpretation: EKG at 17:16 shows normal sinus rhythm at 73 beats per minute. No definite acute ischemic findings. No significant change from previous EKG. Discharge Plan Discharge Clinical Impression: Chest pain Patient Disposition: Home, Self-Care Additional Instructions: Your testing in the emergency room today seems quite reassuring. There is no evidence of a heart attack or heart failure or other obvious signs of a significant cardiovascular process. I think you may continue your plans to walk for exercise. I think that your chest pain is likely either a result of this stressors in your life or possibly from acid reflux. In case this chest pain syndrome is from acid reflux I have sent a prescription for omeprazole, an acid reducing medicine to your pharmacy. You may take this once a day. Please plan on making a follow up appointment with your regular doctor to discuss the symptoms further and discuss how to possibly manage your stressful situation. If at any point you are significantly worse please return to the emergency department for additional evaluation. Prescriptions: New omeprazole 40 mg capsule,delayed release(DR/EC) 40 mg PO DAILY Qty: 30 0RF No Action cholecalciferol (vitamin D3) 50 mcg (2,000 unit) tablet 50 mcg PO DAILY Qty: 90 0RF vitamin A palmitate 10,000 unit capsule 10,000 unit PO DAILY Qty: 30 2RF diclofenac potassium 50 mg tablet 50 mg PO BID PRN (Reason: pain) 30 Days Qty: 60 0RF ezetimibe [Zetia] 10 mg tablet 10 mg PO DAILY Qty: 30 3RF levothyroxine 100 mcg tablet 100 mcg PO DAILY 30 Days Qty: 30 1RF Referrals: Jojo Moralez MD [Primary Care Provider] - (Chest pain, psychosocial stressors) Interventions: ED Discharge Assessment Last Done: 01/27/24 21:54 Discharge Date/Time: 01/27/24 22:04 Print Language: Bengali
[2024-01-27 17:37] LABS: MANUAL DIFF FLAG NO
[2024-01-27 17:38] LABS: Basophils Absolute Auto 0.1 X10*3/uL (0.0-0.2); Basophils Percent Auto 0.9 % (0-2); Eosinophils Absolute Auto 0.2 X10*3/uL (0.0-0.4); Eosinophils Percent Auto 2.9 % (0-4); Hemoglobin 14.3 g/dl (12.0-16.0); Imm Gran Abs Auto 0.01 X10*3/uL (0.00-0.03); Imm Gran Pct Auto 0.2 % (0.0-0.4); Lymphocytes Absolute Auto 2.6 X10*3/uL (1.2-4.9); Lymphocytes Percent Auto 44.7 % (20-40); Mean Corpuscular HGB Conc 33.3 g/dl (31.0-35.0); Mean Corpuscular Hemoglobin 29.3 pg (27.0-33.0); Mean Corpuscular Volume 88.1 fL (80.0-98.0); Monocytes Absolute Auto 0.4 X10*3/uL (0.1-1.2); Monocytes Percent Auto 6.4 % (2-11); Neutrophils Absolute Auto 2.6 x10*3/uL (2.0-8.3); Neutrophils Percent Auto 44.9 % (45-73); Platelet Count 228 X10*3/uL (160-400); Red Blood Count 4.88 X10*6/uL (4.20-5.50); Red Cell Distribution Width 13.7 % (11.0-16.0); White Blood Count 5.8 X10*3/uL (4.8-10.8)
[2024-01-27 17:44] LABS: INTERNATIONAL NORM RATIO 0.9 (0.9-1.1); Prothrombin Time 11.3 SEC (11.1-13.3)
[2024-01-27 17:54] LABS: Alkaline Phosphatase 114 U/L (39-117); Anion Gap 10 (12-20); Aspartate Amino Transferase 30 U/L (5-31); Bilirubin Total 0.3 mg/dL (0.0-1.0); Blood Urea Nitrogen 15 mg/dL (9-16); Calcium 9.4 mg/dL (8.4-10.2); Carbon Dioxide 29 mmol/L (22-29); Chloride 108 mmol/L (96-108); Creatinine Clr Calc Pharmacy 86.4; Estimated Glomerular Filt Rate > 60; Glucose Random 128 mg/dL (60-115); Potassium 3.7 mmol/L (3.3-5.1); Sodium 143 mmol/L (135-145); Total Protein 7.3 g/dL (6.5-8.0)
[2024-01-27 17:56] LABS: B Type Natriuretic Peptide 24 pg/mL (<100)
[2024-01-27 17:59] LABS: Troponin-I High Sensitivity < 2.7 ng/L (<3.5-17.0)
[2024-01-27 18:04] LABS: Alanine Aminotransferase 34 U/L (0-31)
[2024-01-27 18:47] LABS: Influenza A PCR NEGATIVE (Negative); Influenza B PCR NEGATIVE (Negative); Resp Syncy Virus RNA Qual PCR NEGATIVE (Negative); SARS COV2 PCR INHOUSE NEGATIVE (Negative)
[2024-01-27 20:30] LABS: Troponin-I High Sensitivity < 2.7 ng/L (<3.5-17.0)
[2024-01-27 20:36] VITALS: BP 136/83; PULSE 71; RESP 14; TEMP 36.4; O2SAT 98
[2024-01-27 21:54] VITALS: BP 136/83; PULSE 70; RESP 17; TEMP 36.1; O2SAT 98
[2024-01-27] MEDS: Sucralfate Oral Suspension 1 GM/10 ML ORAL.SUSP PO (21:57)
== END 2024-01-27 22:04 | disposition home or self-care (01) ==
PROVIDERS: Emergency Medicine; Registered Nurse Emergency; Emergency Provider Emergency Medicine; PCP Internal Medicine
DX: R07.89 Other chest pain (principal); R06.02 Shortness of breath; Z79.899 Other long term (current) drug therapy; Z11.52 Encounter for screening for COVID-19; Z20.822 Contact with and (suspected) exposure to COVID-19
CPT/HCPCS: 0241U; 36415; 71046; 80053; 83880; 84484; 85025; 85610; 93005; 99283; 99284

== ENCOUNTER → 2024-01-27 17:16 | Outpatient (BNV) | payer MEDICARE, SELFPAY | PROVIDERS: Emergency Provider Emergency Medicine; PCP Internal Medicine; Visit Provider Internal Medicine Cardiovascular Disease | DX: R07.9 Chest pain, unspecified (principal); R94.31 Abnormal electrocardiogram [ECG] [EKG] | CPT/HCPCS: 93010 ==

== ENCOUNTER 2024-03-08 16:32 | Outpatient (AMB) | payer MEDICARE, SELFPAY ==
[2024-03-08 16:47] VITALS: BP 130/82; BMI 40.7
--- NOTE | 2024-03-08 16:47 | A.OFFPC_ITS ---
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 Accompanied by: Self / Same As Patient Allergies penicillin V Allergy (Unknown, Verified 03/08/24 16:59) itchy Penicillins [PENICILLINS] Allergy (Unknown, Verified 03/08/24 16:59) RASH atorvastatin Adverse Reaction (Unknown, Verified 03/08/24 16:59) myalgia simvastatin Adverse Reaction (Unknown, Verified 03/08/24 16:59) myalgia Medication List - Last Reconciled 03/08/24 by Jojo Dumont MD cholecalciferol (vitamin D3) 50 mcg PO DAILY diclofenac potassium 50 mg PO BID PRN 30 days ezetimibe (Zetia) 10 mg PO DAILY levothyroxine 100 mcg PO DAILY 30 days omeprazole 40 mg PO DAILY Tobacco use date assessed: 03/08/24 Fall risk assessment: No Falls in past year Last assessed Fall Risk: 03/08/24 Dental Screening Dental Screen Date: 03/08/24 Did you have a dental visit in the last 12 months?: No Did you have a dental problem in the last 6 months where you did not have access to dental care?: No Was dental information given to patient?: Patient has dentist HPI HPI Comments History of Present Illness Details This is a 68-year-old female with hypothyroidism, pure hypercholesterolemia, morbid obesity and low vitamin-D that comes today for follow-up on her conditions. TSH and lipid panel was ordered. She admits that has not take her Zetia and levothyroxine in about a month. She is morbidly obese with a BMI of 40.7 and has tried diet and exercise in the past with no significant relieved. He declines weight loss surgery. On vitamin-D supplemen ts for her low vitamin-D. She went to the hospital in 01/22/2024 due to chest pain associated with stressful situation that happened at rest and EKG was abnormal. She has not had chest pain since but I will still refer her to Cardiology. Patient has not had a mammogram or bone density and I will order this. Patient is aware of her colonoscopy results which she did not show for her follow-up appointment. She is aware she has tubular adenoma, internal hemorrhoids and diverticulosis and that needs to a repeat colonoscopy in 2-3 years. Complains of right knee pain and follows with ortho for that matter. [facility] Medical History (Updated 03/08/24 @ 18:24 by Jojo Dumont MD) Pure hypercholesterolemia Hypothyroid Transaminitis Surgical History H/O colonoscopy No pertinent past surgical history Family History (Updated 03/08/24 @ 17:13 by Jojo Dumont MD) Mother Colon cancer, Onset Age: 65 Maternal Grandmother Stomach cancer Social History (Updated 03/08/24 @ 17:14 by Jojo Dumont MD) Housing: House Alcohol intake: current Alcohol intake frequency: holidays/special occasions only Alcohol type: wine Patient Tobacco Use Status: Never used Tobacco e-Cigarette/Vaping Use: Never Used Second Hand Smoke Exposure: No service: No 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 1. Little interest or pleasure in doing things: not at all 2. Feeling down, depressed, or hopeless: not at all 3. Trouble falling or staying asleep, or sleeping too much: not at all 4. Feeling tired or having little energy: not at all 5. Poor appetite or overeating: not at all 6. Feeling bad about yourself - or that you are a failure or have let yourself or your family down: not at all 7. Trouble concentrating on things, such as reading the newspaper or watching television: not at all 8. Moving or speaking so slowly that other people could have noticed. Or the opposite - being so fidgety or restless that you have been moving around a lot more than usual: not at all 9. Thoughts that you would be better off or of hurting yourself in some way: not at all Total score: 0 Depression Screening Interpretation: Negative Depression Screening Done: Yes 85217 - PHQ-9 Billing: Yes Source: Developed by Drs. Marcus Ba, Candi B.WPipe Vela and colleagues, with an educational shekhar from [employer]. Thrive Questionnaire Date Thrive assessed: 03/08/24 I am a: Patient What is your living situation today?: I have a steady place to live Within the past 12 months, did the food you bought not last and you didn't have the money to get more?: Never true Within the past 12 months, did you worry whether your food would run out before you got money to buy more?: Never true Do you have trouble paying for medicines?: No Do you have trouble getting transportation to medical appointments?: No Do you have trouble paying your heating and electricity bill?: No Do you have trouble taking care of your child, family member or friend?: No Do you have trouble with day-to-day activities such as bathing, preparing meals, shopping, managing finances, etc.?: No Are you currently unemployed and looking for a job?: No Are you interested in more education?: No Please select the resources that you would like help with: None Currently or been in a relationship where the following occur: no concerns reported THRIVE Score: 0 AUDIT C Alcohol Use Questionnaire (AUDIT-C) 1. How often do you have a drink containing alcohol?: Monthly or less 2. How many drinks containing alcohol do you have on a typical day when you are drinking?: 1 or 2 3. How often do you have six or more drinks on one occasion?: Never Total Score: 1 Score Reviewed/Action Taken: No DRAGAN-7 AMB Questionnaire DRAGAN-7 Date DRAGAN - 7 assessed: 03/08/24 Feeling nervous, anxious, or on edge: 0 = Not at all Not being able to stop or control worryin = Not at all Worrying too much about different things: 0 = Not at all Trouble relaxin = Not at all Being so restless that it is hard to sit still: 0 = Not at all Becoming easily annoyed or irritable: 0 = Not at all Feeling afraid as if something awful might happen: 0 = Not at all Total DRAGAN-7 score (0-4 normal; 5-9 mild; 10-14 moderate; 15-21 severe): 0 Source: Developed by Drs. Marcus Ba, Pipe Hayward and colleagues, with an educational shekhar from [employer]. DRAGAN-7 Assessment Billing DRAGAN-7 Assessment Tool: DRAGAN-7 Assessment 39668 Review of Systems Const All systems reviewed & are unremarkable except as noted in HPI and below Card Denies chest pain at rest, Denies chest pain with activity, Denies edema, Denies irregular heart rhythm, Denies claudication, Denies dyspnea, Denies dyspnea on exertion, Denies orthopnea, Denies paroxysmal nocturnal dyspnea and Denies slow heart rate Resp Denies cough, Denies dyspnea and Denies dyspnea on exertion Physical exam (Primary Care) Vital Signs: Last Vital Signs BP 130/82 03/08/24 16:47 BMI result Body Mass Index 40.7 Tobacco/Smoking Status: Tobacco use Status Tobacco use date assessed 03/08/24 03/08/24 16:55 Patient Tobacco Use Status Never used Tobacco 03/08/24 17:14 e-Cigarette/Vaping Use Never Used 03/08/24 17:14 PHQ-9: PHQ-9 Score PHQ-9: Total score 0 03/08/24 17:02 Depression Screening Interpretation: Negative Thrive Assessment: Date of Thrive Assessment Date Thrive assessed 03/08/24 03/08/24 16:55 Currently or been in a relationship where the following occur: no concerns reported Resp Effort & Inspection: normal respiratory effort Auscultation: clear to auscultation bilaterally Cardio Jugular venous distension: no JVD Rate: regular rate Rhythm: regular rhythm Heart sounds: S1 normal heart sound present and S2 normal heart sound present Extrem General: Yes full ROM Assessment and Plan Assessment & Plan (1) Morbid obesity with BMI of 40.0-44.9, adult: Code(s): E66.01 - Morbid (severe) obesity due to excess calories; Z68.41 - Body mass index [BMI] 40.0-44.9, adult Plan: Start Wegovy. (2) Abnormal EKG: Code(s): R94.31 - Abnormal electrocardiogram [ECG] [EKG] Plan: Referred to cardiology. 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 Repeat TSH. (4) Pure hypercholesterolemia: Code(s): E78.00 - Pure hypercholesterolemia, unspecified Plan: Be compliant with statins. Repeat lipid panel. Start low-cholesterol diet. (5) Hypovitaminosis D: Code(s): E55.9 - Vitamin D deficiency, unspecified Plan: Continue vitamin-D supplements. Orders: Orders Lipid Panel Today E78.5 - Hyperlipidemia, unspecified Thyroid Stimulating Hormone Today E03.9 - Hypothyroidism, unspecified XR DEXA axial skeleton Today N95.9 - Unspecified menopausal and perimenopausal disorder Comprehensive Andes. Panel Fast Today Z68.41 - Body mass index [BMI] 40.0-44.9, adult MM screening mammo BI Today Z12.31 - Encounter for screening mammogram for malignant neoplasm of breast Referrals Cardiology Referral R94.31 - Abnormal electrocardiogram [ECG] [EKG] Medications: New semaglutide (weight loss) (Wegovy) administer weeks 1 through 4 of therapy 0.25 mg (0.5 mL) subcut QWEEK 2 mL 0RF 4 weeks E66.01 - Morbid (severe) obesity due to excess calories, Z68.41 - Body mass index [BMI] 40.0-44.9, adult Refilled levothyroxine 100 mcg PO DAILY 30 tabs 1RF 30 days E03.9 - Hypothyroidism, unspecified ezetimibe (Zetia) 10 mg PO DAILY 30 tabs 3RF E78.00 - Pure hypercho lesterolemia, unspecified cholecalciferol (vitamin D3) 50 mcg PO DAILY 90 tabs 0RF Coding Level of Care Code Est Pt Level 4 (27484) Complex EM visit Add On G2211 Diagnoses Morbid obesity with BMI of 40.0-44.9, adult E66.01; Z68.41 Abnormal EKG R94.31 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
== END 2024-03-08 17:28 | disposition home or self-care (01) ==
PROVIDERS: PCP Internal Medicine; Visit Provider Internal Medicine
DX: E66.01 Morbid (severe) obesity due to excess calories (principal); Z68.41 Body mass index [BMI] 40.0-44.9, adult; R94.31 Abnormal electrocardiogram [ECG] [EKG]; E03.8 Other specified hypothyroidism; E06.3 Autoimmune thyroiditis; E78.00 Pure hypercholesterolemia, unspecified; E55.9 Vitamin D deficiency, unspecified
CPT/HCPCS: 99214; G2211

== ENCOUNTER 2024-03-13 07:51 | Outpatient (REF) | payer MEDICARE, SELFPAY ==
[2024-03-13 10:38] LABS: Alanine Aminotransferase 42 U/L (0-31); Alkaline Phosphatase 120 U/L (39-117); Anion Gap 11 (12-20); Aspartate Amino Transferase 29 U/L (5-31); Bilirubin Total 0.4 mg/dL (0.0-1.0); Blood Urea Nitrogen 18 mg/dL (9-16); Calcium 9.7 mg/dL (8.4-10.2); Carbon Dioxide 29 mmol/L (22-29); Chloride 107 mmol/L (96-108); Cholesterol 305 mg/dL (<200); Estimated Glomerular Filt Rate > 60; Glucose Fasting 94 mg/dL (60-99); HDL Cholesterol 79 mg/dL (>40); LDL Cholesterol Calculated 202 mg/dL (<100); Potassium 4.2 mmol/L (3.3-5.1); Sodium 143 mmol/L (135-145); Total Protein 7.3 g/dL (6.5-8.0); Triglycerides 124 mg/dL (<150)
[2024-03-13 10:55] LABS: Thyroid Stimulating Hormone 17.12 uIU/mL (0.32-4.0)
== END 2024-03-13 07:52 | disposition home or self-care (01) ==
LOC: HO.LAB 07:51
PROVIDERS: PCP Internal Medicine; Visit Provider Internal Medicine
DX: E78.5 Hyperlipidemia, unspecified (principal); E03.9 Hypothyroidism, unspecified; Z68.41 Body mass index [BMI] 40.0-44.9, adult
CPT/HCPCS: 36415; 80053; 80061; 84443

== ENCOUNTER 2024-04-24 13:40 | Outpatient (AMB) | payer MEDICARE, SELFPAY ==
[2024-04-24 13:43] VITALS: BP 124/60; PULSE 73; BMI 41.4
--- NOTE | 2024-04-24 13:43 | A.OFFVIS_ITS ---
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 Required: No Accompanied by: Self / Same As Patient Allergies penicillin V Allergy (Unknown, Verified 03/08/24 16:59) itchy Penicillins [PENICILLINS] Allergy (Unknown, Verified 03/08/24 16:59) RASH atorvastatin Adverse Reaction (Unknown, Verified 03/08/24 16:59) myalgia simvastatin Adverse Reaction (Unknown, Verified 03/08/24 16:59) myalgia Medication List - Last Reconciled 04/24/24 by Izaiah Jimenez MD cholecalciferol (vitamin D3) 50 mcg PO DAILY diclofenac potassium 50 mg PO BID PRN 30 days ezetimibe (Zetia) 10 mg PO DAILY levothyroxine 100 mcg PO DAILY 30 days omeprazole 40 mg PO DAILY rosuvastatin 10 mg PO DAILY 90 days semaglutide (weight loss) (Wegovy) 0.25 mg (0.5 mL) subcut QWEEK 4 weeks HPI Comments Details: Lisbeth is here for consultation regarding chest pain. Apparently, there was a lot of recent stress in her family. After that, she had discomfort in the chest. To me, she states that she had only 1 episode of this but in the ER note, there is mention of 3 days. There is also question of shortness of breath with exertion. Any case, she was seen in the emergency room, ruled out for ACS and thought to be acid reflux and she was discharged home. After that, there has not been any recurrence of any symptoms. She states she is feeling good now. No known cardiac issues including coronary artery disease or myocardial infarction or cardiomyopathy. [facility] Medical History (Updated 04/24/24 @ 14:05 by Izaiah Jimenez MD) Pure hypercholesterolemia Hypothyroid Transaminitis Surgical History H/O colonoscopy No pertinent past surgical history Family History Mother Colon cancer, Onset Age: 65 Maternal Grandmother Stomach cancer Social History Housing: House Alcohol intake: current Alcohol intake frequency: holidays/special occasions only Alcohol type: wine Patient Tobacco Use Status: Never used Tobacco e-Cigarette/Vaping Use: Never Used Second Hand Smoke Exposure: No service: No Current occupational status: employed Current occupational exposures/hazards: No Cognitive needs: No Hearing needs: No Vision needs: No Review of Systems Const Denies chills, Denies daytime sleepiness, Denies fatigue, Denies fever(s), Denies poor appetite, Denies snoring, Denies stops breathing during sleep, Denies weakness, Denies weight gain and Denies weight loss Eyes Denies loss of vision ENT Denies dizziness and Denies hearing loss Card Denies chest pain, Denies irregular heart rhythm, Denies claudication, Denies leg edema, Denies lightheadedness, Denies palpitations, Denies dyspnea on exertion and Denies orthopnea Resp Denies cough, Denies excessive phlegm production, Denies dyspnea on exertion, Denies snoring and Denies wheezing GI Denies abdominal pain, Denies hematochezia, Denies change in bowel habits, Denies nausea and Denies vomiting Denies urinary frequency and Denies dysuria Musc Denies arthralgias, Denies muscle weakness, Denies numbness and Denies other Skin/Breast Denies nail changes and Denies rash Neuro Denies Abnormal speech present, Denies dizziness, Denies loss of vision, Denies memory loss, Denies numbness and Denies weakness Psych Denies depression and Denies memory loss Endo Denies fatigue and Denies palpitations Syed/Lymph Denies easy bruising Aller/Immun Denies wheezing Physical Exam Vital Signs: Last Vital Signs Pulse 73 04/24/24 13:43 BP 124/60 04/24/24 13:43 BMI result Body Mass Index 41.4 Const General: comfortable and no acute distress Orientation/consciousness: patient oriented x3 HEENT Other: Unremarkable Head: Yes normal to inspection Neck Neck: Yes normal visual inspection Chest Chest palpation & inspection: normal inspection of the chest Resp Auscultation: clear to auscultation bilaterally Cardio Palpation: normal PMI Heart sounds: S1 normal heart sound present, S2 normal heart sound present, no gallops, no murmurs and no rubs GI Palpation (GI): Soft to palpation Back/Spine/Pelvis Other: unremarkable Skin General skin exam: no rashes or lesions noted Neuro General: patient oriented x3 Speech: No Abnormal speech present Extrem General: Yes normal to inspection Psych Mental Status: mental status grossly normal Assessment & Plan Assessment & Plan (1) Precordial chest pain: Code(s): R07.2 - Precordial pain Category: Medical Plan In the EKG, underlying rhythm is sinus at 73/Min; cannot exclude old anterior infarct; normal WI and corrected QT. EKG changes could be from body habitus. Troponin levels are within normal limits. Overall, considering her age, being overweight and the reason symptoms, we will evaluate her further. Echocardiogram/stress test being recommended. Discussed with her about this and she agrees. As discussed above, she is completely symptom-free at this time. Will follow-up once these are completed. Orders: Orders CA echo transthoracic complete Today R07.2 - Precordial pain CA echo stress exercise Today R07.2 - Precordial pain Coding Level of Care Code New Pt Level 4 (04757) Diagnoses Precordial chest pain R07.2
== END 2024-04-24 14:21 | disposition home or self-care (01) ==
PROVIDERS: PCP Internal Medicine; Visit Provider Internal Medicine
DX: R07.2 Precordial pain (principal)
CPT/HCPCS: 99204

== ENCOUNTER → 2024-04-24 13:40 | Outpatient (BNVA) | payer MEDICARE, SELFPAY | PROVIDERS: PCP Internal Medicine; Visit Provider Internal Medicine | DX: R07.2 Precordial pain (principal); Z63.8 Other specified problems related to primary support group | CPT/HCPCS: 99202 ==

== ENCOUNTER → 2024-05-11 12:53 | Outpatient (REF) | payer MEDICARE, SELFPAY ==
--- NOTE | 2024-05-11 12:56 | CA_ITS ---
Transthoracic Echocardiogram Patient (Last, First, Middle): Lisbeth Tellez, Gender: Female Date of : 1955 Age: 68 Procedure Date: 05/11/2024 Procedure Type: Transthoracic Echocardiogram Location: OP Height: 162. cm Weight: 106.6 kg BSA: 2.09 m2 Heart Rate: 71 bpm BP: 120 / 75 mmHg Travel Registered Nurse Nicu: ODALIS Gustafson MD: Izaiah Jimenez MD Saw Cleaner: Laurent Rossi MD Symptoms: R07.2 - Precordial pain Study Quality: Fair ECG Rhythm: Sinus Conclusions: - 1. Normal LV ejection fraction of 65-70% with grade 1 diastolic dysfunction 2. Mild mitral calcification with normal cardiac valvular Dopplers 3. No gross pericardial effusion Findings Left Ventricle Normal left ventricular size, thickness, and systolic function. The visually estimated ejection fraction is between 65-70%. Spectral Doppler is indicative of an impaired relaxation filling pattern. E/E prime ratio is <8, consistent with normal filling pressures. Evidence suggests grade I (mild) diastolic dysfunction. Peak GLS is -19.0%, within normal limits. Right Ventricle Normal right ventricular cavity size and systolic function. Atria Both atria are normal in size. There is lipomatous hypertrophy of the interatrial septum. There is no evidence of interatrial shunt. Aortic Valve The aortic valve was not well visualized. There is no aortic valve stenosis. There is no aortic valve regurgitation. Mitral Valve There is mild anterior and posterior mitral leaflet thickening. There is mild mitral annular calcification. There is trace mitral valve regurgitation. There is no mitral valve stenosis. Pulmonic Valve The pulmonic valve is likely normal. There is trace pulmonic valve regurgitation. Tricuspid Valve Normal tricuspid valve structure. Tricuspid regurgitation envelope is inadequate for calculation of right ventricular systolic pressure. Normal right atrial pressure. Great Vessels The pulmonary artery was not well visualized. There is no dilatation of the ascending aorta measuring 3.20 cm. Venous The inferior vena cava is normal in size and collapses greater than 50% with inspiration. Pericardium/Pleural There is no evidence of pericardial effusion. Prior Study Comparison No prior study available for comparison. Measurements 2D Linear Measurements IVSd: 0.92 0.6-0.9/0.6-1.0 cm LVIDd: 3.18 3.9-5.3/4.2-5.9 cm LVIDd Index: 1.52 2.4-3.2/2.2-3.1 cm/m2 LVIDs: 2.03 2.0-3.6 cm LVPWd: 0.95 0.7-1.1 cm LA Diam: 3.10 2.7-3.8/3.0-4.0 cm LAIDs Index: 1.48 1.5-2.3 cm/m2 LV Mass: 99.78 67-162/88-224 g LV Mass Index: 47.74 43-95/49-115 g/m2 LVOT Diam: 1.70 3.0+(-)1.3 cm 2D Systolic Function EF 4C: 69.90 >55% EF 2C: 61.80 >55% EF BiP: 66.00 >55% Mitral Valve MV Pk E: 0.79 MV PK A: 0.88 MV Decel Time: 380.00 E/A: 0.90 E'Lateral: 8.59 E'Medial: 6.53 E/E' Med: 12.10 E/E' Lat: 9.20 PHT: 111.00 MVA PHT: 1.98 Decel [place]: 2.09 Aortic Valve AoV Pk Stalin: 1.63 AoV Mn Stalin: 1.11 AoV VTI: 0.31 AoV Pk Grad: 11.00 Aov Mn Grad: 6.00 CLAIR Cont.VTI: 1.96 LVOT LVOT Pk Stalin: 1.33 LVOT Mn Stalin: 0.89 LVOT VTI: 0.27 LVOT Pk Grad: 7.00 LVOT Mn Grad: 4.00 LVOT Diam: 1.70 LVOT Area: 2.27 Diastolic Function MV Pk E: 0.79 MV Pk A: 0.88 E/A: 0.90 E'Medial: 6.53 E/E' Med: 12.10 E' Laterial: 8.59 E/E' Lat: 9.20 Right Ventricle TAPSE (mm): 25.60 TVS' Stalin: 13.10 Tricuspid Valve RA Press: 3.00 Great Vessels Aorta Sinus of Valsalva: 2.70 2.0-3.5 cm Ao Asc: 3.20 2.1-3.4 cm Pulmonary Valve PV Pk Stalin: 1.03 Peak PV Grad: 4.00 Updated in Other Vendor System with Status of Final Laurent Rossi MD electronically signed on 05/12/2024 11:24:12 AM with status of Final
[2024-05-11 13:52] LABS: MANUAL DIFF FLAG NO
[2024-05-11 14:17] LABS: Basophils Absolute Auto 0.1 X10*3/uL (0.0-0.2); Eosinophils Absolute Auto 0.1 X10*3/uL (0.0-0.4); Eosinophils Percent Auto 2.1 % (0-4); Hematocrit 42.5 % (37.0-47.0); Hemoglobin 14.1 g/dl (12.0-16.0); Imm Gran Abs Auto 0.02 X10*3/uL (0.00-0.03); Imm Gran Pct Auto 0.3 % (0.0-0.4); Lymphocytes Absolute Auto 2.2 X10*3/uL (1.2-4.9); Lymphocytes Percent Auto 38.6 % (20-40); Mean Corpuscular HGB Conc 33.2 g/dl (31.0-35.0); Mean Corpuscular Hemoglobin 29.4 pg (27.0-33.0); Mean Corpuscular Volume 88.5 fL (80.0-98.0); Mean Platelet Volume 11.2 fL (9.4-12.3); Monocytes Absolute Auto 0.3 X10*3/uL (0.1-1.2); Neutrophils Absolute Auto 3.1 x10*3/uL (2.0-8.3); Platelet Count 236 X10*3/uL (160-400); Red Cell Distribution Width 13.2 % (11.0-16.0); White Blood Count 5.8 X10*3/uL (4.8-10.8)
[2024-05-11 14:54] LABS: Thyroid Stimulating Hormone 4.17 uIU/mL (0.32-4.0)
== END ==
LOC: HO.CARD 12:53
PROVIDERS: PCP Internal Medicine; Visit Provider Internal Medicine
DX: R07.2 Precordial pain (principal); E03.8 Other specified hypothyroidism; E06.3 Autoimmune thyroiditis; D64.9 Anemia, unspecified
CPT/HCPCS: 36415; 84443; 85025; 93306; 93356

== ENCOUNTER → 2024-05-11 12:56 | Outpatient (BNV) | payer MEDICARE, SELFPAY | PROVIDERS: PCP Internal Medicine; Visit Provider Internal Medicine Cardiovascular Disease | DX: I34.81 Nonrheumatic mitral (valve) annulus calcification (principal); I51.89 Other ill-defined heart diseases | CPT/HCPCS: 93306; 93356 ==

== ENCOUNTER 2024-06-13 13:18 | Outpatient (AMB) | payer MEDICARE, SELFPAY ==
--- NOTE | 2024-06-13 13:22 | MHC.OFFVIS ---
Intake Visit Reasons: OV - right knee OA, last injection 11/16/23 Intake Note: Lisbeth is a 68 year old female who presents today for a repeat injection for her right knee, last injection 11/16/23. Patient reports her last injection gave her relief but she feels like she over did it with PT. Allergies penicillin V Allergy (Unknown, Verified 06/13/24 13:31) itchy Penicillins [PENICILLINS] Allergy (Unknown, Verified 06/13/24 13:31) RASH atorvastatin Adverse Reaction (Unknown, Verified 06/13/24 13:31) myalgia simvastatin Adverse Reaction (Unknown, Verified 06/13/24 13:31) myalgia HPI HPI OV - right knee OA, last injection 11/16/23: Details: 68-year-old female who presents in the office today for a follow-up of right knee osteoarthritis. I last saw the patient in the office on 11/16/23 when she received a cortisone injection in the right knee.? ? While in the office today, the patient reports her injection gave her relief but feel she over worked herself in physical therapy. ? [facility] Medical History (Updated 04/24/24 @ 14:05 by Izaiah Jimenez MD) Pure hypercholesterolemia Hypothyroid Transaminitis Surgical History H/O colonoscopy No pertinent past surgical history Family History Mother Colon cancer, Onset Age: 65 Maternal Grandmother Stomach cancer Social History Housing: House Alcohol intake: current Alcohol intake frequency: holidays/special occasions only Alcohol type: wine Patient Tobacco Use Status: Never used Tobacco e-Cigarette/Vaping Use: Never Used Second Hand Smoke Exposure: No service: No Current occupational status: employed Current occupational exposures/hazards: No Cognitive needs: No Hearing needs: No Vision needs: No Review of Systems Const All systems reviewed & are unremarkable except as noted in HPI and below Physical Exam Const General: cooperative, healthy appearing and no acute distress Resp Effort & Inspection: normal respiratory effort and able to speak in complete sentences Cardio Rate: regular rate Peripheral pulses: Peripheral pulses 2+ throughout GI Palpation (GI): Soft to palpation Skin Lesions: no lesions Rashes: no rashes Extrem Other: Right knee: Normal to inspection. No ecchymosis, erythema, or joint effusion. No tenderness to palpation to the medial or lateral joint lines. Full knee extension and flexion. Crepitus felt with ROM. NVI. Office Procedures Joint Injection/Aspiration Joint Injection/Aspiration Primary Site: right knee Prep: site was prepped using aseptic technique, ethochloride spray was applied and injection warnings given Injected: 80 mg of, DepoMedrol, with 8 mL of (2% plain lido ) and in the joint Approach Used: anterolateral Procedure: The patient tolerated the procedure well, but had some pain with the injection and there was some relief with the local anesthesia Coding - Large joint Procedure code (CPT) selection complete Assessment & Plan Assessment & Plan (1) Osteoarthritis of right knee: Code(s): M17.11 - Unilateral primary osteoarthritis, right knee Category: Medical Qualifiers: Osteoarthritis type: unspecified Qualified Code(s): M17.11 - Unilateral primary osteoarthritis, right knee Plan Ms. Tellez is a 68-year-old female who presents in the office today for a follow-up of right knee osteoarthritis. I last saw the patient in the office on 11/16/23 when she received a cortisone injection in the right knee.? ? While in the office today, the patient reports her injection gave her relief but feel she over worked herself in physical therapy.? ? The patient was offered a cortisone injection in the right knee with 80 mg of Depo-Medrol. The patient was explained the risks, benefits, and alternatives to receiving this injection. After receiving consent for the injection, the patient had the procedure done while in the office today. The patient tolerated the procedure well with no complications.? ? Follow-up will be PRN, or sooner if needed. ? Patient Instructions: Scribed by Melissa Green medical library assistant, for Keena Roblero PA-C on 06/13/2024 at 1:46 pm, EST.? Coding Level of Care Code Est Pt Level 3 (42521) Diagnoses Osteoarthritis of right knee, unspecified osteoarthritis type M17.11 Osteoarthritis type: unspecified CPT Codes Coding - 10600 Large joint: 45343 - Large joint ([id number])
== END 2024-06-13 14:06 | disposition home or self-care (01) ==
PROVIDERS: PCP Internal Medicine; Visit Provider Physician Assistant
DX: M17.11 Unilateral primary osteoarthritis, right knee (principal)
CPT/HCPCS: 20610; 99213

== ENCOUNTER → 2024-06-13 13:18 | Outpatient (BNVA) | payer MEDICARE, SELFPAY | PROVIDERS: PCP Internal Medicine; Visit Provider Physician Assistant | DX: M17.11 Unilateral primary osteoarthritis, right knee (principal) | CPT/HCPCS: 20610; 99212; J1010 ==

== ENCOUNTER 2024-12-15 08:18 | Outpatient (REF) | payer MEDICARE, SELFPAY ==
--- NOTE | ~2024-12-15 | XR_ITS ---
EXAMINATION: XR KNEE, RIGHT CLINICAL INFORMATION: M25.569 - Pain in unspecified knee COMPARISON: 08/03/2023. TECHNIQUE: AP view bilateral knees standing, lateral and patellofemoral views right knee. FINDINGS: Left Knee: Moderate medial greater than lateral compartment joint space narrowing. Marginal osteophytic spurs. Mild varus angulation of the joint. Tibial spine spurs. Normal soft tissues. Right Knee: No fracture, dislocation, or suspicious bone lesion. Moderate to severe medial compartment narrowing with osteophytic spurs. Compensatory mild widening of the lateral compartment with mild varus angulation of the joint. Severe patellofemoral arthropathy with large marginal osteophytes. Patella is normally aligned. No significant joint effusion. Normal soft tissues. XR/XR knee RT 3V IMPRESSION: 1. Right knee demonstrating moderate to severe medial and lateral compartment osteoarthrosis, and severe patellofemoral osteoarthrosis. No significant joint effusion. 2. Left knee demonstrating similar findings. Electronically signed by: Abel Jose MD 12/15/2024 02:32 PM EDT
== END 2024-12-15 08:19 | disposition home or self-care (01) ==
LOC: HO.HOSX 08:18
PROVIDERS: Visit Provider Physician Assistant
DX: M17.11 Unilateral primary osteoarthritis, right knee (principal); M25.569 Pain in unspecified knee
CPT/HCPCS: 20610; 73562; 99212; J1010; J2003

== ENCOUNTER 2024-12-15 11:26 | Outpatient (AMB) | payer MEDICARE, SELFPAY ==
--- NOTE | 2024-12-15 11:29 | MHC.OFFVIS ---
Intake Visit Reasons: OV - right knee OA, last injection 06/13/24 Intake Note: Lisbeth is a 69 year old female who presents today for a repeat injection for her right knee, last injection 06/13/24. Patient reports her last injection gave her relief but she feels like she over did it with PT and would like to continue PT as well. She mentions that her first couple of sessions were casuing her too much pain and canceled PT. Allergies penicillin V Allergy (Unknown, Verified 12/15/24 11:47) itchy Penicillins [PENICILLINS] Allergy (Unknown, Verified 12/15/24 11:47) RASH atorvastatin Adverse Reaction (Unknown, Verified 12/15/24 11:47) myalgia simvastatin Adverse Reaction (Unknown, Verified 12/15/24 11:47) myalgia HPI HPI OV - right knee OA, last injection 06/13/24: Details: Ms. Tellez is a 69-year-old female who presents to the office today for right knee osteoarthritis. Her last injection was on 06/13/2024. She was attending physical therapy but this increased her pain and she was unable to progress therefore she discontinued. [facility], [facility] Medical History (Updated 04/24/24 @ 14:05 by Izaiah Jimenez MD) Pure hypercholesterolemia Hypothyroid Transaminitis Surgical History H/O colonoscopy No pertinent past surgical history Family History Mother Colon cancer, Onset Age: 65 Maternal Grandmother Stomach cancer Social History Housing: House Alcohol intake: current Alcohol intake frequency: holidays/special occasions only Alcohol type: wine Patient Tobacco Use Status: Never used Tobacco e-Cigarette/Vaping Use: Never Used Second Hand Smoke Exposure: No service: No Current occupational status: employed Current occupational exposures/hazards: No Cognitive needs: No Hearing needs: No Vision needs: No Review of Systems Const All systems reviewed & are unremarkable except as noted in HPI and below Physical Exam Const General: cooperative, healthy appearing and no acute distress Resp Effort & Inspection: normal respiratory effort and able to speak in complete sentences Cardio Rate: regular rate Peripheral pulses: Peripheral pulses 2+ throughout Skin Lesions: no lesions Rashes: no rashes Extrem Other: Right knee: Normal to inspection. No ecchymosis, erythema, or joint effusion. No tenderness to palpation to the medial or lateral joint lines. Full knee extension and flexion. Crepitus felt with ROM. NVI. Office Procedures AMB Joint Injection/Aspiration Joint Injection/Aspiration Primary Site: right knee Prep: site was prepped using aseptic technique, ethochloride spray was applied and injection warnings given Injected: 80 mg of, DepoMedrol, with 8 mL of (2% plain lidocaine) and in the joint Approach Used: anterolateral Procedure: The patient tolerated the procedure well, but had some pain with the injection and there was some relief with the local anesthesia Coding - Large joint Procedure code (CPT) selection complete Assessment & Plan Assessment & Plan (1) Osteoarthritis of right knee: Code(s): M17.11 - Unilateral primary osteoarthritis, right knee Category: Medical Qualifiers: Osteoarthritis type: unspecified Qualified Code(s): M17.11 - Unilateral primary osteoarthritis, right knee Plan Ms. Tellez is a 69-year-old female who presents to the office today for right knee osteoarthritis. Her last injection was on 06/13/2024. She was attending physical therapy but this increased her pain and she was unable to progress therefore she discontinued. The patient was offered a cortisone injection in the right knee with 80 mg of DepoMedrol. The patient was explained the risks, benefits, and alternatives to receiving this injection. After receiving consent for the injection, the patient had the procedure done while in the office today. The patient tolerated the procedure well with no complications. Follow-up will be p.r.n., or sooner if needed X-rays of the right knee which were obtained while in the office today and were reviewed by me, Keena Roblero PA-C, revealed significant end-stage osteoarthritis. Orders: Orders XR knee LT 1V Today M25.569 - Pain in unspecified knee XR knee RT 3V Today M25.569 - Pain in unspecified knee PT Evaluation and Treatment Today M17.11 - Unilateral primary osteoarthritis, right knee Coding Level of Care Code Est Pt Level 3 (01133) Diagnoses Osteoarthritis of right knee, unspecified osteoarthritis type M17.11 Osteoarthritis type: unspecified CPT Codes Coding - 98837 Large joint: 80406 - Large joint ([id number])
== END 2024-12-15 11:58 | disposition home or self-care (01) ==
LOC: HO.HOS 11:27
PROVIDERS: PCP Internal Medicine; Visit Provider Physician Assistant
DX: M17.11 Unilateral primary osteoarthritis, right knee (principal)
CPT/HCPCS: 20610; 99213

== ENCOUNTER → 2024-12-15 11:28 | Outpatient (BNV) | payer MEDICARE, SELFPAY | PROVIDERS: Visit Provider Radiology Diagnostic Radiology | DX: M25.561 Pain in right knee (principal) | CPT/HCPCS: 73562 ==

== ENCOUNTER 2025-04-11 08:51 | Outpatient (REF) | payer MEDICARE, SELFPAY ==
--- NOTE | ~2025-04-11 | XR_ITS ---
EXAMINATION: X-ray knee, bilaterally. CLINICAL INFORMATION: Knee pain. TECHNIQUE: AP view both knees in standing position. Lateral and sunrise views both knees. COMPARISON: December 15, 2024. FINDINGS: Joint space narrowing involving the patellofemoral joint space and mostly the medial compartments both knees. Small marginal osteophyte formation in the medial tibial plateaus. Exostosis in the posterior patella, bilaterally. Suprapatellar bursa joint effusion, left knee. No acute cortical disruption or malalignment. No lytic or blastic lesions. XR/XR Knee Zach 3V IMPRESSION: Moderate tricompartmental osteoarthrosis involving mostly the medial compartment both knees. Suprapatellar bursa joint effusion, left knee. Electronically signed by: Esteban Flaherty MD 04/11/2025 03:39 PM EDT
== END 2025-04-11 08:52 | disposition home or self-care (01) ==
LOC: HO.HOSX 08:51
PROVIDERS: Visit Provider Physician Assistant
DX: M17.0 Bilateral primary osteoarthritis of knee (principal); M25.561 Pain in right knee; M25.562 Pain in left knee
CPT/HCPCS: 20610; 73562; 99212; J1010; J2003

== ENCOUNTER 2025-04-11 14:44 | Outpatient (AMB) | payer MEDICARE, SELFPAY ==
--- NOTE | 2025-04-11 15:01 | MHC.OFFVIS ---
Intake Visit Reasons: OV - B/L knee OA, last inj right knee 12/15/24 Intake Note: Lisbeth is a 69 year old female who presents today for a repeat injection for her right knee, last injection 06/13/24. Patient reports she had a fall about a week and a half possibly 2 weeks ago. She notices that her left knee is clicking when she is walking. Allergies penicillin V Allergy (Unknown, Verified 04/11/25 15:09) itchy Penicillins (PENICILLINS) Allergy (Unknown, Verified 04/11/25 15:09) RASH atorvastatin Adverse Reaction (Unknown, Verified 04/11/25 15:09) myalgia simvastatin Adverse Reaction (Unknown, Verified 04/11/25 15:09) myalgia HPI HPI OV - B/L knee OA, last inj right knee 12/15/24: Details: Ms. Tellez is a 69-year-old female who presents to the office today for follow-up of bilateral knee osteoarthritis. She received a cortisone injection on 12/15/2024 which did give her some relief. She recently fell about 2 weeks ago and has had a significant increase in pain ever since. She is interested in repeating cortisone injections versus discussion of surgery and gel injections. [facility]LY [facility] Medical History (Updated 04/24/24 @ 14:05 by Izaiah Jimenez MD) Pure hypercholesterolemia Hypothyroid Transaminitis Surgical History H/O colonoscopy No pertinent past surgical history Family History Mother Colon cancer, Onset Age: 65 Maternal Grandmother Stomach cancer Social History Housing: House Alcohol intake: current Alcohol intake frequency: holidays/special occasions only Alcohol type: wine Patient Tobacco Use Status: Never used Tobacco e-Cigarette/Vaping Use: Never Used Second Hand Smoke Exposure: No service: No Current occupational status: employed Current occupational exposures/hazards: No Cognitive needs: No Hearing needs: No Vision needs: No Review of Systems Const All systems reviewed & are unremarkable except as noted in HPI and below Physical Exam Const General: cooperative, healthy appearing and no acute distress Resp Effort & Inspection: normal respiratory effort and able to speak in complete sentences Extrem Other: Right knee: Normal to inspection. No ecchymosis, erythema, or joint effusion. No tenderness to palpation to the medial or lateral joint lines. Full knee extension and flexion. Crepitus felt with ROM. NVI. Office Procedures AMB Joint Injection/Aspiration Joint Injection/Aspiration Primary Site: right knee Secondary Site: left knee Injected: 80 mg of, DepoMedrol, with 8 mL of (2% plain lidocaine) and in the joint Approach Used: anterolateral Procedure: The patient tolerated the procedure well, but had some pain with the injection and there was some relief with the local anesthesia Coding 99947 - Bilateral Large Joint Procedure code (CPT) selection complete Assessment & Plan Assessment & Plan (1) Osteoarthritis of right knee: Code(s): M17.11 - Unilateral primary osteoarthritis, right knee Category: Medical Qualifiers: Osteoarthritis type: unspecified Qualified Code(s): M17.11 - Unilateral primary osteoarthritis, right knee (2) Osteoarthritis of left knee: Code(s): M17.12 - Unilateral primary osteoarthritis, left knee Category: Medical Qualifiers: Osteoarthritis type: unspecified Qualified Code(s): M17.12 - Unilateral primary osteoarthritis, left knee Plan While in the office today, we discussed the role of total knee arthroplasty and the BMI goal of 40. Patient did start Wegovy for weight loss and reports she has lost about 16 lb. Patient also inquired about gel injections which I do think would be appropriate for her given her level of arthritis and wanting to avoid total knee arthroplasty at this time. The patient was offered a cortisone injection in bilateral knees with 80 mg of DepoMedrol. The patient was explained the risks, benefits, and alternatives to receiving this injection. After receiving consent for the injection, the patient had the procedure done while in the office today. The patient tolerated the procedure well with no complications. We will petition the insurance company for coverage of gel injections. Once this is obtained we will call the patient to schedule appointments as appropriate. X-rays of bilateral knees which were obtained while in the office today and were reviewed by me, Keena Roblero PA-C, revealed significant osteoarthritis bilaterally. No acute fracture or dislocation. Coding Level of Care Code Est Pt Level 3 (32011) Diagnoses Osteoarthritis of right knee, unspecified osteoarthritis type M17.11 Osteoarthritis type: unspecified Osteoarthritis of left knee, unspecified osteoarthritis type M17.12 Osteoarthritis type: unspecified CPT Codes Coding - 74948 - Bilateral Large Joint: 78089 - Bilateral Large Joint ([id number])
== END 2025-04-11 15:55 | disposition home or self-care (01) ==
LOC: HO.HOS 14:45
PROVIDERS: Visit Provider Physician Assistant
DX: M17.0 Bilateral primary osteoarthritis of knee (principal)
CPT/HCPCS: 20610; 99213

== ENCOUNTER → 2025-04-11 15:12 | Outpatient (BNV) | payer MEDICARE, SELFPAY | PROVIDERS: Visit Provider Radiology Diagnostic Radiology | DX: M17.0 Bilateral primary osteoarthritis of knee (principal); M25.462 Effusion, left knee | CPT/HCPCS: 73562 ==

== ENCOUNTER 2025-05-10 12:23 | Outpatient (AMB) | payer MEDICARE, SELFPAY ==
--- NOTE | 2025-05-10 12:28 | MHC.PC.OV ---
Vital Signs 05/10/25 12:30 Height 5 ft 4 in Weight 233 lb BMI 40.0 BP 136/70 Blood Pressure Location Lt brachial Position Sitting Intake Visit Reasons: follow up weight Intake Note: Patient here for a weight follow up Planner Chief Required: No Accompanied by: Self / Same As Patient Allergies penicillin V Allergy (Unknown, Verified 05/10/25 12:40) itchy Penicillins (PENICILLINS) Allergy (Unknown, Verified 05/10/25 12:40) RASH atorvastatin Adverse Reaction (Unknown, Verified 05/10/25 12:40) myalgia simvastatin Adverse Reaction (Unknown, Verified 05/10/25 12:40) myalgia Medication List - Last Reconciled 05/10/25 by Jojo Dumont MD cholecalciferol (vitamin D3) 50 mcg PO DAILY diclofenac potassium 50 mg PO BID PRN 90 days ezetimibe (Zetia) 10 mg PO DAILY levothyroxine 112 mcg PO DAILY 90 days omeprazole 40 mg PO DAILY rosuvastatin 10 mg PO DAILY 90 days Tobacco use date assessed: 05/10/25 Fall risk assessment: No Falls in past year Last assessed Fall Risk: 05/10/25 Dental Screening Dental Screen Date: 05/10/25 Did you have a dental visit in the last 12 months?: No Did you have a dental problem in the last 6 months where you did not have access to dental care?: No Was dental information given to patient?: Patient has dentist HPI HPI Comments History of Present Illness Details The patient is a 69-year-old female presenting with concerns about weight management and associated conditions. She reports a history of obesity with a BMI of 40, and has previously been on Wegovy for weight loss, which she discontinued two months ago due to prescription expiration, resulting in a weight gain of two pounds. The patient describes the weight loss with Wegovy as slow and expresses interest in resuming treatment or trying Zepbound, another GLP-1 agonist. The patient has a history of hyperlipidemia, managed with rosuvastatin and Zetia, but experienced muscle aches with atorvastatin and simvastatin. She is also on levothyroxine for hypothyroidism, with recent labs indicating a need for repeat thyroid function tests. The patient experiences gastroesophageal reflux disease (GERD), for which she takes omeprazole as needed. She denies regular smoking and drinks wine only on special occasions. The patient reports episodes of anxiety, which have previously led her to seek emergency care due to concerns of a heart attack, later attributed to stress. She underwent an echocardiogram last year, which showed normal ejection fraction and mild mitral calcification, but no significant cardiac issues. The patient reports sleep disturbances, often feeling tired during the day due to inadequate sleep at night, which she attributes to her busy schedule and late bedtimes. [facility] Medical History (Updated 05/10/25 @ 12:56 by Jojo Dumont MD) Pure hypercholesterolemia Hypothyroid Transaminitis Surgical History H/O colonoscopy No pertinent past surgical history Family History Mother Colon cancer, Onset Age: 65 Maternal Grandmother Stomach cancer Social History Housing: House Alcohol intake: current Alcohol intake frequency: holidays/special occasions only Alcohol type: wine Patient Tobacco Use Status: Never used Tobacco e-Cigarette/Vaping Use: Never Used Second Hand Smoke Exposure: No service: No Current occupational status: employed Current occupational exposures/hazards: No Cognitive needs: No Hearing needs: No Vision needs: No Questionnaire PHQ-9 Over the last 2 weeks, how often have you been bothered by any of the following problems? 1. Little interest or pleasure in doing things: not at all 2. Feeling down, depressed, or hopeless: not at all 3. Trouble falling or staying asleep, or sleeping too much: not at all 4. Feeling tired or having little energy: not at all 5. Poor appetite or overeating: several days 6. Feeling bad about yourself - or that you are a failure or have let yourself or your family down: not at all 7. Trouble concentrating on things, such as reading the newspaper or watching television: not at all 8. Moving or speaking so slowly that other people could have noticed. Or the opposite - being so fidgety or restless that you have been moving around a lot more than usual: not at all 9. Thoughts that you would be better off or of hurting yourself in some way: not at all Total score: 1 Depression Screening Interpretation: Negative Depression Screening Done: Yes 03819 - PHQ-9 Billing: Yes Source: Developed by Drs. Marcus Ba, Candi Lezama, Pipe Tomas and colleagues, with an educational shekhar from [employer]. Thrive Questionnaire Date Thrive assessed: 05/10/25 I am a: Patient What is your living situation today?: I have a steady place to live Within the past 12 months, did the food you bought not last and you didn't have the money to get more?: Never true Within the past 12 months, did you worry whether your food would run out before you got money to buy more?: Never true Do you have trouble paying for medicines?: I choose not to answer this question Do you have trouble getting transportation to medical appointments?: No Do you have trouble paying your heating and electricity bill?: No Do you have trouble taking care of your child, family member or friend?: No Do you have trouble with day-to-day activities such as bathing, preparing meals, shopping, managing finances, etc.?: No Are you currently unemployed and looking for a job?: No Are you interested in more education?: No Please select the resources that you would like help with: None Currently or been in a relationship where the following occur: No concerns reported THRIVE Score: 0 AUDIT C Alcohol Use Questionnaire (AUDIT-C) 1. How often do you have a drink containing alcohol?: Never Total Score: 0 DRAGAN-7 AMB Questionnaire DRAGAN-7 Date DRAGAN - 7 assessed: 05/10/25 Feeling nervous, anxious, or on edge: 0 = Not at all Not being able to stop or control worryin = Not at all Worrying too much about different things: 0 = Not at all Trouble relaxin = Not at all Being so restless that it is hard to sit still: 0 = Not at all Becoming easily annoyed or irritable: 0 = Not at all Feeling afraid as if something awful might happen: 0 = Not at all Total DRAGAN-7 score (0-4 normal; 5-9 mild; 10-14 moderate; 15-21 severe): 0 Source: Developed by Candi Wu Kurt Kroenke and colleagues, with an educational shekhar from [employer]. DRAGAN-7 Assessment Billing DRAGAN-7 Assessment Tool: DRAGAN-7 Assessment 69220 Review of Systems Const All systems reviewed & are unremarkable except as noted in HPI and below Card Denies chest pain at rest, Denies chest pain with activity, Denies edema, Denies irregular heart rhythm, Denies claudication, Denies dyspnea, Denies dyspnea on exertion, Denies orthopnea, Denies paroxysmal nocturnal dyspnea and Denies slow heart rate Resp Denies cough, Denies dyspnea and Denies dyspnea on exertion GI Denies abdominal pain, Denies change in bowel habits, Denies excessive flatus, Denies nausea and Denies vomiting Denies urinary incontinence, Denies urinary hesitancy and Denies urinary urgency Musc Denies abnormal gait, Denies atrophy, Denies deformity and Denies limited range of motion Skin/Breast Denies bleeding lesions, Denies changing lesions and Denies rash Neuro Denies abnormal gait, Denies behavioral changes and Denies lack of coordination Psych Denies behavioral changes Physical exam (Primary Care) Vital Signs: Last Vital Signs BP 136/70 05/10/25 12:30 BMI result Body Mass Index 40.0 BMI Assessment/Plan discussion: High BMI High, discussed plan: lifestyle, weight reduction, dietary and physical activity Tobacco/Smoking Status: Tobacco use Status Tobacco use date assessed 05/10/25 05/10/25 12:37 Patient Tobacco Use Status Never used Tobacco 05/10/25 12:37 e-Cigarette/Vaping Use Never Used 05/10/25 12:37 PHQ-9: PHQ-9 Score PHQ-9: Total score 1 05/10/25 12:37 Depression Screening Interpretation: Negative Thrive Assessment: Date of Thrive Assessment Date Thrive assessed 05/10/25 05/10/25 12:37 Currently or been in a relationship where the following occur: No concerns reported Resp Effort & Inspection: normal respiratory effort Auscultation: clear to auscultation bilaterally Cardio Jugular venous distension: no JVD Rate: regular rate Rhythm: regular rhythm Heart sounds: S1 normal heart sound present and S2 normal heart sound present Extrem General: Yes full ROM Coding Level of Care Code Est Pt Level 4 (07908) Complex EM visit Add On G2211 Diagnoses BMI 40.0-44.9, adult Z68.41 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; E06.3 Hypothyroidism type: due to Nicole's thyroiditis Pure hypercholesterolemia E78.00 Hypovitaminosis D E55.9 Chronic GERD K21.9 Additional Codes PHQ-9 - 41477 - PHQ-9 Billing: Yes ([id number]) DRAGAN-7 Assessment Billing - DRAGAN-7 Assessment Tool: DRAGAN-7 Assessment 63176 ([id number]) Time Spent (min) 21 Assessment & Plan Assessment & Plan (1) BMI 40.0-44.9, adult: Code(s): Z68.41 - Body mass index [BMI] 40.0-44.9, adult Category: Medical (2) Hypothyroid: Code(s): E03.9 - Hypothyroidism, unspecified Category: Medical Qualifiers: Hypothyroidism type: due to Nicole's thyroiditis Qualified Code(s): E03.8 - Other specified hypothyroidism; E06.3 - Autoimmune thyroiditis (3) Pure hypercholesterolemia: Code(s): E78.00 - Pure hypercholesterolemia, unspecified Category: Medical (4) Hypovitaminosis D: Code(s): E55.9 - Vitamin D deficiency, unspecified Category: Medical (5) Chronic GERD: Code(s): K21.9 - Gastro-esophageal reflux disease without esophagitis Category: Medical Plan The plan includes resuming weight management strategies, considering the use of Zepbound or Wegovy, contingent upon insurance approval. Blood work is planned to assess thyroid function, cholesterol, and glucose levels, which are necessary for insurance approval of Zepbound. The patient is advised to maintain a healthy diet and exercise regimen to support weight loss efforts. For hyperlipidemia, the patient will continue with rosuvastatin and Zetia, monitoring for any muscle aches. For hypothyroidism, levothyroxine will be continued, with follow-up labs to ensure appropriate dosing. The patient is advised to use omeprazole as needed for GERD symptoms and to avoid triggers that exacerbate heartburn. Anxiety management will focus on stress reduction techniques, given the previous episode of anxiety-related chest discomfort. Patient was informed and verbally consented to the use of an ambient scribe for clinic note documentation during this visit. Orders: Orders Lipid Panel Today E78.5 - Hyperlipidemia, unspecified Vitamin D 25-OH Total Today E55.9 - Vitamin D deficiency, unspecified Thyroid Stimulating Hormone Today E03.8 - Other specified hypothyroidism, E06.3 - Autoimmune thyroiditis Comprehensive [place]. Panel Fast Today E66.01 - Morbid (severe) obesity due to excess calories, Z68.41 - Body mass index [BMI] 40.0-44.9, adult Medications: New tirzepatide (weight loss) (Zepbound) for 4 weeks 2.5 mg (0.5 mL) subcut QWEEK 2 mL 0RF 4 weeks Z68.41 - Body mass index [BMI] 40.0-44.9, adult
[2025-05-10 12:30] VITALS: BP 136/70; BMI 40.0
== END 2025-05-10 12:58 | disposition home or self-care (01) ==
LOC: HO.HMCH 12:24
PROVIDERS: PCP Internal Medicine; Visit Provider Internal Medicine
DX: Z68.41 Body mass index [BMI] 40.0-44.9, adult (principal); E03.8 Other specified hypothyroidism; E06.3 Autoimmune thyroiditis; E78.00 Pure hypercholesterolemia, unspecified; E55.9 Vitamin D deficiency, unspecified; K21.9 Gastro-esophageal reflux disease without esophagitis

== ENCOUNTER → 2025-05-10 12:23 | Outpatient (BNVA) | payer MEDICARE, SELFPAY | PROVIDERS: PCP Internal Medicine; Visit Provider Internal Medicine | DX: E66.01 Morbid (severe) obesity due to excess calories (principal); K21.9 Gastro-esophageal reflux disease without esophagitis; F41.9 Anxiety disorder, unspecified; E03.8 Other specified hypothyroidism; E06.3 Autoimmune thyroiditis; E78.00 Pure hypercholesterolemia, unspecified; E55.9 Vitamin D deficiency, unspecified; Z68.41 Body mass index [BMI] 40.0-44.9, adult | CPT/HCPCS: 96127; 99212 ==

== ENCOUNTER 2025-05-16 07:26 | Outpatient (REF) | payer MEDICARE, SELFPAY ==
[2025-05-16 09:24] LABS: Alanine Aminotransferase 53 U/L (0-31); Albumin Level 3.9 g/dL (3.5-5.0); Alkaline Phosphatase 115 U/L (39-117); Anion Gap 12 (12-20); Aspartate Amino Transferase 33 U/L (5-31); Blood Urea Nitrogen 21 mg/dL (9-16); Calcium 9.4 mg/dL (8.4-10.2); Carbon Dioxide 30 mmol/L (22-29); Chloride 107 mmol/L (96-108); Cholesterol 318 mg/dL (<200); Estimated Glomerular Filt Rate > 60; HDL Cholesterol 81 mg/dL (>40); Potassium 4.9 mmol/L (3.3-5.1); Sodium 144 mmol/L (135-145); Total Protein 7.0 g/dL (6.5-8.0); Triglycerides 96 mg/dL (<150)
[2025-05-16 09:37] LABS: Thyroid Stimulating Hormone 16.86 uIU/mL (0.32-4.0)
[2025-05-16 09:46] LABS: Thyroid Stimulating Hormone 16.66 uIU/mL (0.32-4.0)
== END 2025-05-16 07:27 | disposition home or self-care (01) ==
LOC: HO.LAB 07:26
PROVIDERS: Visit Provider Internal Medicine
DX: E03.8 Other specified hypothyroidism (principal); E78.5 Hyperlipidemia, unspecified; E55.9 Vitamin D deficiency, unspecified; E06.3 Autoimmune thyroiditis; E66.01 Morbid (severe) obesity due to excess calories; Z68.41 Body mass index [BMI] 40.0-44.9, adult
CPT/HCPCS: 36415; 80053; 80061; 82306; 84443

== ENCOUNTER 2025-05-17 08:41 | Outpatient (REF) | payer MEDICARE, SELFPAY | END 2025-05-17 08:42 | disposition home or self-care (01) | LOC: HO.HOSX 08:41 | PROVIDERS: Visit Provider Physician Assistant | DX: Z13.89 Encounter for screening for other disorder (principal) ==

== ENCOUNTER 2025-08-14 10:51 | Outpatient (AMB) | payer MEDICARE, SELFPAY ==
--- NOTE | 2025-08-14 10:59 | MHC.OFFVIS ---
Intake Visit Reasons: B/L Knee Euflexxa Gel Injections #1 Intake Note: Lisbeth is a 70 year old male who presents today for her bilateral knee Euflexxa gel injections #1. Allergies penicillin V Allergy (Unknown, Verified 05/10/25 12:40) itchy Penicillins (PENICILLINS) Allergy (Unknown, Verified 05/10/25 12:40) RASH atorvastatin Adverse Reaction (Unknown, Verified 05/10/25 12:40) myalgia simvastatin Adverse Reaction (Unknown, Verified 05/10/25 12:40) myalgia HPI HPI B/L Knee Euflexxa Gel Injections #1: Details: Ms. Washington is a 70-year-old female who presents to the office today for chronic bilateral knee pain due to osteoarthritis. She is beginning the Euflexxa # 1 out of 3 injection series. Additionally, we discussed the importance of weight management with knee arthritis and the consideration of possible total knee replacement in the future. [facility] Medical History Pure hypercholesterolemia Hypothyroid Transaminitis Surgical History H/O colonoscopy No pertinent past surgical history Family History Mother Colon cancer, Onset Age: 65 Maternal Grandmother Stomach cancer Social History Housing: House Alcohol intake: current Alcohol intake frequency: holidays/special occasions only Alcohol type: wine Patient Tobacco Use Status: Never used Tobacco e-Cigarette/Vaping Use: Never Used Second Hand Smoke Exposure: No service: No Current occupational status: employed Current occupational exposures/hazards: No Cognitive needs: No Hearing needs: No Vision needs: No Review of Systems Const All systems reviewed & are unremarkable except as noted in HPI and below Physical Exam Const General: cooperative, healthy appearing and no acute distress Resp Effort & Inspection: normal respiratory effort and able to speak in complete sentences Cardio Rate: regular rate Peripheral pulses: Peripheral pulses 2+ throughout Skin Lesions: no lesions Rashes: no rashes Extrem Other: Bilateral knees: Normal to inspection. No ecchymosis, erythema, or joint effusion. No tenderness to palpation to the medial or lateral joint lines. Full knee extension and flexion. Crepitus felt with ROM. NVI. Office Procedures AMB Joint Injection/Aspiration Joint Injection/Aspiration Primary Site: right knee Secondary Site: left knee Prep: site was prepped using aseptic technique, ethochloride spray was applied and injection warnings given Injected: in the joint (Eufelxxa #1) Approach Used: anterolateral Procedure: The patient tolerated the procedure well, but had some pain with the injection and there was some relief with the local anesthesia Coding 09000 - Bilateral Large Joint Procedure code (CPT) selection complete Assessment & Plan Assessment & Plan (1) Osteoarthritis of right knee: Code(s): M17.11 - Unilateral primary osteoarthritis, right knee Category: Medical Qualifiers: Osteoarthritis type: unspecified Qualified Code(s): M17.11 - Unilateral primary osteoarthritis, right knee (2) Osteoarthritis of left knee: Code(s): M17.12 - Unilateral primary osteoarthritis, left knee Category: Medical Qualifiers: Osteoarthritis type: unspecified Qualified Code(s): M17.12 - Unilateral primary osteoarthritis, left knee (3) Obesity: Code(s): E66.9 - Obesity, unspecified Category: Medical (4) Morbid obesity with BMI of 40.0-44.9, adult: Code(s): E66.01 - Morbid (severe) obesity due to excess calories; Z68.41 - Body mass index [BMI] 40.0-44.9, adult Category: Medical Plan Ms. Washington is a 70-year-old female who presents to the office today for chronic bilateral knee pain due to osteoarthritis. She is beginning the Euflexxa # 1 out of 3 injection series. Additionally, we discussed the importance of weight management with knee arthritis and the consideration of possible total knee replacement in the future. The patient currently has a BMI of 40.0. She would like to discuss with her PCP the possibility of Wegovy injections to assist with weight loss. The patient was offered the Euflexxa # 1 injection in both knees. The patient was explained the risks, benefits, and alternatives to receiving this injection. After receiving consent for the injection, the patient had the procedure done while in the office today. The patient tolerated the procedure well with no complications. Follow-up will be PRN, or sooner if needed Coding Level of Care Code Procedure Only Diagnoses Osteoarthritis of right knee, unspecified osteoarthritis type M17.11 Osteoarthritis type: unspecified Osteoarthritis of left knee, unspecified osteoarthritis type M17.12 Osteoarthritis type: unspecified Obesity E66.9 Morbid obesity with BMI of 40.0-44.9, adult E66.01; Z68.41 CPT Codes Coding - 24834 - Bilateral Large Joint: 02398 - Bilateral Large Joint ([id number])
== END 2025-08-14 11:28 | disposition home or self-care (01) ==
LOC: HO.HOS 10:53
PROVIDERS: PCP Internal Medicine; Visit Provider Physician Assistant
DX: M17.0 Bilateral primary osteoarthritis of knee (principal); E66.9 Obesity, unspecified; E66.01 Morbid (severe) obesity due to excess calories; Z68.41 Body mass index [BMI] 40.0-44.9, adult
CPT/HCPCS: 20610

== ENCOUNTER → 2025-08-14 10:51 | Outpatient (BNVA) | payer MEDICARE, SELFPAY | PROVIDERS: PCP Internal Medicine; Visit Provider Physician Assistant | DX: M17.0 Bilateral primary osteoarthritis of knee (principal) | CPT/HCPCS: 20610; J7323 ==

== ENCOUNTER 2025-08-21 10:55 | Outpatient (AMB) | payer MEDICARE, SELFPAY ==
--- NOTE | 2025-08-21 11:09 | A.OFFVIS_ITS ---
Intake Visit Reasons: B/L Knee Euflexxa Gel Injections #2 Intake Note: roman is a 70 year old male who presents today for her bilateral knee Euflexxa gel injections #2. Patient has noticed a small difference in her pain. Allergies penicillin V Allergy (Unknown, Verified 08/21/25 11:10) itchy Penicillins (PENICILLINS) Allergy (Unknown, Verified 08/21/25 11:10) RASH atorvastatin Adverse Reaction (Unknown, Verified 08/21/25 11:10) myalgia simvastatin Adverse Reaction (Unknown, Verified 08/21/25 11:10) myalgia HPI HPI B/L Knee Euflexxa Gel Injections #2: Details: Ms. Washington is a 70-year-old female who presents to the office today for chronic bilateral knee pain due to osteoarthritis. She is beginning the Euflexxa # 2 out of 3 injection series. [facility] Medical History Pure hypercholesterolemia Hypothyroid Transaminitis Surgical History H/O colonoscopy No pertinent past surgical history Family History Mother Colon cancer, Onset Age: 65 Maternal Grandmother Stomach cancer Social History Housing: House Alcohol intake: current Alcohol intake frequency: holidays/special occasions only Alcohol type: wine Patient Tobacco Use Status: Never used Tobacco e-Cigarette/Vaping Use: Never Used Second Hand Smoke Exposure: No service: No Current occupational status: employed Current occupational exposures/hazards: No Cognitive needs: No Hearing needs: No Vision needs: No Review of Systems Const All systems reviewed & are unremarkable except as noted in HPI and below Physical Exam Const General: cooperative, healthy appearing and no acute distress Resp Effort & Inspection: normal respiratory effort and able to speak in complete sentences Cardio Rate: regular rate Peripheral pulses: Peripheral pulses 2+ throughout Skin Lesions: no lesions Rashes: no rashes Extrem Other: Bilateral knees: Normal to inspection. No ecchymosis, erythema, or joint effusion. No tenderness to palpation to the medial or lateral joint lines. Full knee extension and flexion. Crepitus felt with ROM. NVI. Office Procedures AMB Joint Injection/Aspiration Joint Injection/Aspiration Primary Site: Right Knee Secondary Site: Left Knee Prep: site was prepped using aseptic technique, ethochloride spray was applied and injection warnings given Injected: Euflexxa (#2) and in the joint Approach Used: anterolateral Procedure: The patient tolerated the procedure well, but had some pain with the injection and there was some relief with the local anesthesia Coding - Bilateral Large Joint Procedure code (CPT) selection complete Assessment & Plan Assessment & Plan (1) Osteoarthritis of right knee: Code(s): M17.11 - Unilateral primary osteoarthritis, right knee Category: Medical Qualifiers: Osteoarthritis type: unspecified Qualified Code(s): M17.11 - Unilateral primary osteoarthritis, right knee (2) Osteoarthritis of left knee: Code(s): M17.12 - Unilateral primary osteoarthritis, left knee Category: Medical Qualifiers: Osteoarthritis type: unspecified Qualified Code(s): M17.12 - Unilateral primary osteoarthritis, left knee (3) Obesity: Code(s): E66.9 - Obesity, unspecified Category: Medical (4) Morbid obesity with BMI of 40.0-44.9, adult: Code(s): E66.01 - Morbid (severe) obesity due to excess calories; Z68.41 - Body mass index [BMI] 40.0-44.9, adult Category: Medical Plan Ms. Washington is a 70-year-old female who presents to the office today for chronic bilateral knee pain due to osteoarthritis. She is beginning the Euflexxa # 2 out of 3 injection series. The patient was offered the Euflexxa # 2 injection in both knees. The patient was explained the risks, benefits, and alternatives to receiving this injection. After receiving consent for the injection, the patient had the procedure done while in the office today. The patient tolerated the procedure well with no complications. Follow-up will be 1 wee for Euflexxa #3 injections, or sooner if needed. Coding Level of Care Code Procedure Only Diagnoses Osteoarthritis of right knee, unspecified osteoarthritis type M17.11 Osteoarthritis type: unspecified Osteoarthritis of left knee, unspecified osteoarthritis type M17.12 Osteoarthritis type: unspecified Obesity E66.9 Morbid obesity with BMI of 40.0-44.9, adult E66.01; Z68.41 CPT Codes Coding - - Bilateral Large Joint: 48059 - Bilateral Large Joint ([id number])
== END 2025-08-21 12:08 | disposition home or self-care (01) ==
LOC: HO.HOS 10:56
PROVIDERS: PCP Internal Medicine; Visit Provider Physician Assistant
DX: M17.0 Bilateral primary osteoarthritis of knee (principal); E66.9 Obesity, unspecified; E66.01 Morbid (severe) obesity due to excess calories; Z68.41 Body mass index [BMI] 40.0-44.9, adult
CPT/HCPCS: 20610

== ENCOUNTER → 2025-08-21 10:55 | Outpatient (BNVA) | payer MEDICARE, SELFPAY | PROVIDERS: PCP Internal Medicine; Visit Provider Physician Assistant | DX: M17.0 Bilateral primary osteoarthritis of knee (principal); E66.01 Morbid (severe) obesity due to excess calories; Z68.41 Body mass index [BMI] 40.0-44.9, adult | CPT/HCPCS: 20610; J7323 ==

== ENCOUNTER 2025-08-28 10:49 | Outpatient (AMB) | payer MEDICARE, SELFPAY ==
--- NOTE | 2025-08-28 10:55 | A.OFFVIS_ITS ---
Intake Visit Reasons: B/L Knee Euflexxa Gel Injections #3 Intake Note: Lisbeth is a 70 year old male who presents today for her bilateral knee Euflexxa gel injections #3. Allergies penicillin V Allergy (Unknown, Verified 08/21/25 11:10) itchy Penicillins (PENICILLINS) Allergy (Unknown, Verified 08/21/25 11:10) RASH atorvastatin Adverse Reaction (Unknown, Verified 08/21/25 11:10) myalgia simvastatin Adverse Reaction (Unknown, Verified 08/21/25 11:10) myalgia HPI HPI B/L Knee Euflexxa Gel Injections #3: Details: Ms. Tellez is a 70-year-old female who presents to the office today for Euflexxa #3. [facility], [facility] Medical History Pure hypercholesterolemia Hypothyroid Transaminitis Surgical History H/O colonoscopy No pertinent past surgical history Family History Mother Colon cancer, Onset Age: 65 Maternal Grandmother Stomach cancer Social History Housing: House Alcohol intake: current Alcohol intake frequency: holidays/special occasions only Alcohol type: wine Patient Tobacco Use Status: Never used Tobacco e-Cigarette/Vaping Use: Never Used Second Hand Smoke Exposure: No service: No Current occupational status: employed Current occupational exposures/hazards: No Cognitive needs: No Hearing needs: No Vision needs: No Review of Systems Const All systems reviewed & are unremarkable except as noted in HPI and below Physical Exam Const General: cooperative, healthy appearing and no acute distress Resp Effort & Inspection: normal respiratory effort and able to speak in complete sentences Cardio Rate: regular rate Peripheral pulses: Peripheral pulses 2+ throughout Skin Lesions: no lesions Rashes: no rashes Extrem Other: Bilateral knees: Normal to inspection. No ecchymosis, erythema, or joint effusion. No tenderness to palpation to the medial or lateral joint lines. Full knee extension and flexion. Crepitus felt with ROM. NVI. Psych Appearance: grossly normal Mental Status: mental status grossly normal Attitude: cooperative Office Procedures AMB Joint Injection/Aspiration Joint Injection/Aspiration Primary Site: Right Knee Secondary Site: Left Knee Prep: site was prepped using aseptic technique, ethochloride spray was applied and injection warnings given Injected: Euflexxa (#3) and in the joint Approach Used: anterolateral Procedure: The patient tolerated the procedure well, but had some pain with the injection and there was some relief with the local anesthesia Coding 77846 - Bilateral Large Joint Procedure code (CPT) selection complete Assessment & Plan Assessment & Plan (1) Osteoarthritis of right knee: Code(s): M17.11 - Unilateral primary osteoarthritis, right knee Category: Medical Qualifiers: Osteoarthritis type: unspecified Qualified Code(s): M17.11 - Unilateral primary osteoarthritis, right knee (2) Osteoarthritis of left knee: Code(s): M17.12 - Unilateral primary osteoarthritis, left knee Category: Medical Qualifiers: Osteoarthritis type: unspecified Qualified Code(s): M17.12 - Unilateral primary osteoarthritis, left knee Plan The patient was offered a Euflexxa #3. The patient was explained the risks, benefits, and alternatives to receiving this injection. After receiving consent for the injection, the patient had the procedure done while in the office today. The patient tolerated the procedure well with no complications. The risks, benefits, and alternatives to a corticosteroid injection were discussed with the patient, including the potential benefits of decreased inflammation and pain, improved function, and diagnostic value. Risks were reviewed, including post-injection flare, skin or fat atrophy, transient facial flushing, temporary elevation in blood glucose, bruising, and rare but serious complications such as infection, tendon weakening or rupture, and cartilage damage with repeated injections. Procedure-related discomfort and possible vasovagal symptoms were also explained. Alternatives were reviewed, including NSAIDs, physical therapy, activity modification, bracing, ice/heat, weight management, hyaluronic acid injections when appropriate, PRP or other orthobiologics, oral steroids, surgery depending on pathology, and observation. The patient verbalized understanding and elected to proceed. After receiving consent for the injection, the patient had the procedure done while in the office today. The patient tolerated the procedure well with no complications. Follow-up will be PRN, or sooner if needed Coding Level of Care Code Procedure Only Diagnoses Osteoarthritis of right knee, unspecified osteoarthritis type M17.11 Osteoarthritis type: unspecified Osteoarthritis of left knee, unspecified osteoarthritis type M17.12 Osteoarthritis type: unspecified CPT Codes Coding - 96838 - Bilateral Large Joint: 68219 - Bilateral Large Joint ( [id number])
== END 2025-08-28 11:36 | disposition home or self-care (01) ==
LOC: HO.HOS 10:50
PROVIDERS: PCP Internal Medicine; Visit Provider Physician Assistant
DX: M17.0 Bilateral primary osteoarthritis of knee (principal)
CPT/HCPCS: 20610

== ENCOUNTER → 2025-08-28 10:49 | Outpatient (BNVA) | payer MEDICARE, SELFPAY | PROVIDERS: PCP Internal Medicine; Visit Provider Physician Assistant | DX: M17.0 Bilateral primary osteoarthritis of knee (principal) | CPT/HCPCS: 20610; J7323 ==

== ENCOUNTER 2025-09-19 09:12 | Outpatient (REF) | payer MEDICARE, SELFPAY ==
[2025-09-19 12:11] LABS: Thyroid Stimulating Hormone 9.96 uIU/mL (0.32-4.0)
== END 2025-09-19 09:13 | disposition home or self-care (01) ==
LOC: HO.LAB 09:12
PROVIDERS: PCP Internal Medicine; Visit Provider Internal Medicine
DX: Z00.00 Encounter for general adult medical examination without abnormal findings (principal); Z23 Encounter for immunization; E03.8 Other specified hypothyroidism; E06.3 Autoimmune thyroiditis; E66.01 Morbid (severe) obesity due to excess calories; Z68.41 Body mass index [BMI] 40.0-44.9, adult
CPT/HCPCS: 36415; 84443; 90471; 90677; 99397

== ENCOUNTER 2025-09-19 09:12 | Outpatient (AMB) | payer MEDICARE, SELFPAY ==
--- NOTE | 2025-09-19 09:16 | A.OFFPC_ITS ---
Vital Signs 09/19/25 09:17 Height 5 ft 4 in Weight 236 lb 8 oz BMI 40.6 BP 116/70 Blood Pressure Location Lt brachial Position Sitting Respiration 18 Pulse 81 Pulse Source Pulse Oximeter Temp 97.7 F Temp Source Temporal Artery Scan Pulse Oximetry (%) 97 Oxygen Delivery Method Room Air Intake Visit Reasons: Annual Exam Assessment Services Manager Required: No Accompanied by: Self / Same As Patient Allergies penicillin V Allergy (Unknown, Verified 09/19/25 09:16) itchy Penicillins (PENICILLINS) Allergy (Unknown, Verified 09/19/25 09:16) RASH atorvastatin Adverse Reaction (Unknown, Verified 09/19/25 09:16) myalgia simvastatin Adverse Reaction (Unknown, Verified 09/19/25 09:16) myalgia Medication List - Last Reconciled 09/19/25 by Jojo Dumont MD cholecalciferol (vitamin D3) 50 mcg PO DAILY diclofenac potassium 50 mg PO ONCE PRN ezetimibe (Zetia) 10 mg PO DAILY levothyroxine (Synthroid) 125 mcg PO DAILY 90 days omeprazole 40 mg PO DAILY PRN rosuvastatin 10 mg PO DAILY 90 days semaglutide (weight loss) (Wegovy) 1 mg (0.5 mL) subcut Q7D 4 weeks Tobacco use date assessed: 05/10/25 Fall risk assessment: No Falls in past year Last assessed Fall Risk: 09/19/25 Dental Screening Dental Screen Date: 05/10/25 HPI HPI Comments History of Present Illness Details The patient is a 70 year old female presenting for an annual physical exam. She has a history of allergies to penicillin, as well as atorvastatin and simvastatin which caused muscle aches. For weight management, the patient is on Wegovy 1 mg, on which she initially lost 17 pounds but has since regained 8 pounds. She experiences intermittent vomiting with the medication. She notes that others have had better results with Zepbound, and due to insurance issues and high cost, she switched her pharmacy to [facility]. The patient has osteoarthritis of the knees, confirmed by x-ray, causing stiffness but not pain. She received a gel shot about three weeks ago to help with symptoms and to avoid surgery, and was told it may take a month to become effective. She takes diclofenac infrequently for inflammation. She has a history of hypothyroidism and takes levothyroxine 125 mcg at night, which was started around May. Her last thyroid test was uncontrolled, which may be contributing to her difficulty with weight management. Regarding her hypercholesterolemia, the patient reports she has discontinued taking ezetimibe and rosuvastatin. For health maintenance, a colonoscopy last year revealed a couple of abnormal polyps, with a recommendation to repeat the procedure in 2-3 years. She is due for a mammogram and has not had a bone density test. She has declined the flu and Tdap vaccines but agreed to the pneumonia vaccine. [facility] Medical History (Updated 09/19/25 @ 11:41 by Jojo Dumont MD) Pure hypercholesterolemia Hypothyroid Transaminitis Surgical History H/O colonoscopy No pertinent past surgical history Family History Mother Colon cancer, Onset Age: 65 Maternal Grandmother Stomach cancer Social History Housing: House Alcohol intake: current Alcohol intake frequency: holidays/special occasions on ly Alcohol type: wine Patient Tobacco Use Status: Never used Tobacco e-Cigarette/Vaping Use: Never Used Second Hand Smoke Exposure: No service: No Current occupational status: employed Current occupational exposures/hazards: No Cognitive needs: No Hearing needs: No Vision needs: No Questionnaire Thrive Questionnaire Date Thrive assessed: 05/10/25 I am a: Patient What is your living situation today?: I have a steady place to live Within the past 12 months, did the food you bought not last and you didn't have the money to get more?: Never true Within the past 12 months, did you worry whether your food would run out before you got money to buy more?: Never true Do you have trouble paying for medicines?: I choose not to answer this question Do you have trouble getting transportation to medical appointments?: No Do you have trouble paying your heating and electricity bill?: No Do you have trouble taking care of your child, family member or friend?: No Do you have trouble with day-to-day activities such as bathing, preparing meals, shopping, managing finances, etc.?: No Are you currently unemployed and looking for a job?: No Are you interested in more education?: No Please select the resources that you would like help with: None Currently or been in a relationship where the following occur: No concerns reported THRIVE Score: 0 DRAGAN-7 AMB Questionnaire DRAGAN-7 Date DRAGAN - 7 assessed: 05/10/25 Source: Developed by Drs. Marcus Ba, Candi Lezama, Pipe Tomas and colleagues, with an educational shekhar from [employer]. Review of Systems Const All systems reviewed & are unremarkable except as noted in HPI and below Card Denies chest pain at rest, Denies chest pain with activity, Denies edema, Denies irregular heart rhythm, Denies claudication, Denies dyspnea, Denies dyspnea on exertion, Denies orthopnea, Denies paroxysmal nocturnal dyspnea and Denies slow heart rate Resp Denies cough, Denies dyspnea and Denies dyspnea on exertion GI Denies abdominal pain, Denies change in bowel habits, Denies excessive flatus, Denies nausea and Denies vomiting Denies urinary incontinence, Denies urinary hesitancy and Denies urinary urgency Musc Denies atrophy, Denies deformity and Denies limited range of motion Skin/Breast Denies bleeding lesions, Denies changing lesions and Denies rash Physical exam (Primary Care) Vital Signs: Last Vital Signs Temp 97.7 F 09/19/25 09:17 Pulse 81 09/19/25 09:17 Resp 18 09/19/25 09:17 BP 116/70 09/19/25 09:17 Pulse Ox 97 09/19/25 09:17 Oxygen Delivery Method Room Air 09/19/25 09:17 BMI result Body Mass Index 40.6 BMI Assessment/Plan discussion: High BMI High, discussed plan: lifestyle, weight reduction, dietary and physical activity Tobacco/Smoking Status: Tobacco use Status Tobacco use date assessed 05/10/25 09/19/25 09:25 Patient Tobacco Use Status Never used Tobacco 09/19/25 09:25 e-Cigarette/Vaping Use Never Used 09/19/25 09:25 Thrive Assessment: Date of Thrive Assessment Date Thrive assessed 05/10/25 09/19/25 09:25 Currently or been in a relationship where the following occur: No concerns reported HENMT Head: Yes normal to inspection, Yes normocephalic and Yes atraumatic Ears: external ears normal Eyes General: appearance normal, both eyes and all related structures Eyelids: Yes eyelids normal Conjunctivae: conjunctivae normal Neck Neck: Yes normal visual inspection and Yes supple Resp Effort & Inspection: normal respiratory effort Auscultation: clear to auscultation bilaterally Cardio Jugular venous distension: no JVD Rate: regular rate Rhythm: regular rhythm Heart sounds: S1 normal heart sound present and S2 normal heart sound present GI Inspection: Yes normal to inspection Palpation (GI): Soft to palpation and nontender Auscultation: normal bowel sounds Skin General skin exam: no rashes or lesions noted Neuro General: no focal motor deficits Extrem General: Yes full ROM Psych Appearance: grossly normal Immunizations pneumoc 20-karyna conj-dip cr(PF) 0.5 mL IM syringe Performing Provider: Jojo Dumont MD [facility] [place] Administered by: Candis Jean RN on 09/19/25 10:09 Dose Route Admin Location Dispensed Lot Number Expiration Date [facility] Lining Inserter 0.5 mL IM Left Deltoid 0.5 mL [id number] 07/03/26 2601-3988-32 [email or web address] Total Dispensed Waste 0.5 mL 0 % VIS Given Date VIS Provided VIS Publication Date 09/19/25 Single Vaccine 25 Eligibility Eligibility Date Funding Source Not [facility] Eligible 09/19/25 Private Coding Level of Care Code Est Pt Prev Care >65y(86526) Diagnoses Physical exam Z00.00 Morbid obesity with BMI of 40.0-44.9, adult E66.01; Z68.41 Time Spent (min) 31 Assessment & Plan Assessment & Plan (1) Physical exam: Code(s): Z00.00 - Encounter for general adult medical examination without abnormal findin gs Category: Medical (2) Morbid obesity with BMI of 40.0-44.9, adult: Code(s): E66.01 - Morbid (severe) obesity due to excess calories; Z68.41 - Body mass index [BMI] 40.0-44.9, adult Category: Medical Plan Plan 1. Physical exam Repeating a year. Patient declined flu and Tdap vaccine. Pneumonia vaccine done today. Colonoscopy done in 2023 and should be repeated 2-3 years after. Mammogram and DEXA scan ordered. 1. Morbid Obesity. The patient reports initial weight loss with Wegovy 1 mg but has since had weight regain and experiences vomiting. She has heard about better results with Zepbound. It was noted that her uncontrolled thyroid may also be impacting her weight. A prescription for Wegovy will be increased to the 1.7 mg dose to assess efficacy. The patient will try this for one month and will also contact her pharmacy to inquire about the cost of Zepbound as a future alternative. 2. Uncontrolled Hypothyroidism The patient's last thyroid test was uncontrolled, which can affect weight ivelisse [email or web address]. She has been on levothyroxine 125 mcg since May. Repeat thyroid lab testing will be done today. If levels remain elevated, the dose of levothyroxine will be increased. 3. Hypercholesterolemia Lab results show an elevated total cholesterol of 318 mg/dL and LDL of 216 mg/dL, but a high HDL of 81 mg/dL and excellent triglycerides of 96 mg/dL. The calculated 10-year Dittmer Risk Score for a cardiovascular event is low at 2.7%. Given the low risk score and patient's self-discontinuation of ezetimibe and rosuvastatin, these medications will be officially discontinued. The plan is to monitor her cholesterol, as improvement in weight and thyroid function may also improve lipid levels. 4. Osteoarthritis Of Knee The patient experiences knee stiffness but no pain, and recently had a gel injection. She uses diclofenac as needed for inflammation rarely, and her kidney function is normal. A new prescription for diclofenac will be provided. Orders: Orders Thyroid Stimulating Hormone 6 Months E03.8 - Other specified hypothyroidism, E06.3 - Autoimmune thyroiditis Pneumococcal 20 Immunization Today Z23 - Encounter for immunization MM tomosynthesis screening BI Today E03.8 - Other specified hypothyroidism, E06.3 - Autoimmune thyroiditis, Z12.31 - Encounter for screening mammogram for malignant neoplasm of breast XR DEXA axial skeleton Today E03.8 - Other specified hypothyroidism, E06.3 - Autoimmune thyroiditis, Z78.0 - Asymptomatic menopausal state Thyroid Stimulating Hormone Today E03.8 - Other specified hypothyroidism, E06.3 - Autoimmune thyroiditis Lipid Panel 6 Months E78.5 - Hyperlipidemia, unspecified Vitamin D 25-OH Total 6 Months E55.9 - Vitamin D deficiency, unspecified Comprehensive [place]. Panel Fast 6 Months E78.00 - Pure hypercholesterolemia, unspecified Medications: New semaglutide (weight loss) (Wegovy) administer weeks 13 through 16 of therapy 1.7 mg (0.75 mL) subcut QWEEK 3 mL 0RF 4 weeks Changed From diclofenac potassium 50 mg PO ONCE PRN pain To diclofenac potassium 50 mg PO BID PRN 180 tabs 0RF pain 90 days From omeprazole 40 mg PO DAILY PRN To omeprazole 40 mg PO DAILY 90 caps 0RF 90 days Discontinued ezetimibe (Zetia) Discontinued Reason: Patient Completed Course 10 mg PO DAILY 30 tabs 3RF E78.00 - Pure hypercholesterolemia, unspecified rosuvastatin Discontinued Reason: Patient Completed Course 10 mg PO DAILY 90 days 90 tabs 1RF semaglutide (weight loss) (Vandana) Discontinued Reason: Patient Completed Course 1 mg (0.5 mL) subcut Q7D 4 weeks 2 mL 0RF
[2025-09-19 09:17] VITALS: BP 116/70; PULSE 81; RESP 18; TEMP 36.5; O2SAT 97; BMI 40.6
== END 2025-09-19 10:25 | disposition home or self-care (01) ==
LOC: HO.HMCH 09:13
PROVIDERS: PCP Internal Medicine; Visit Provider Internal Medicine
DX: Z00.00 Encounter for general adult medical examination without abnormal findings (principal); E66.01 Morbid (severe) obesity due to excess calories; Z68.41 Body mass index [BMI] 40.0-44.9, adult; Z23 Encounter for immunization